=== PATIENT | female | born 1965 | race Caucasian/White ===

== ENCOUNTER → 2017-04-03 | Outpatient (CLI) | payer OTHER ==
[2017-04-03 08:53] LABS: CHOLESTEROL 268.84 mg/dL (0-200); Direct HDL 37 mg/dL (>40)
[2017-04-03 09:03] LABS: DIRECT LDL 115 mg/dL (<100); TRIGLYCERIDES 719 mg/dL (<150)
== END ==
LOC: CCC 07:09
DX: D64.9 Anemia, unspecified (principal); E55.9 Vitamin D deficiency, unspecified
CPT/HCPCS: 36415; 80061; 82306; 83540

== ENCOUNTER → 2017-09-11 | Outpatient (CLI) | payer OTHER ==
[2017-09-11 08:29] LABS: ALANINE AMINOTRANSFERASE 49 U/L (9-52); ALBUMIN 4.4 g/dL (3.5-5.0); ALKALINE PHOSPHATASE 163 U/L (38-126); ANION GAP 16 (5-19); ASPARTATE AMINO TRANSFERASE 41 U/L (14-36); BILIRUBIN,DIRECT 0.5 mg/dL (0.0-0.4); BLOOD UREA NITROGEN 10 mg/dL (7-20); CALCIUM 9.9 mg/dL (8.4-10.2); CARBON DIOXIDE 27 mmol/L (22-30); CHLORIDE 103 mmol/L (98-107); CHOLESTEROL 172.87 mg/dL (0-200); CREATININE RESULT 0.49 mg/dL (0.52-1.25); Direct HDL 47 mg/dL (>40); GLUCOSE 103 mg/dL (75-110); POTASSIUM 3.9 mmol/L (3.6-5.0); SODIUM 146.4 mmol/L (137-145); TOTAL PROTEIN 7.5 g/dL (6.3-8.2); TRIGLYCERIDES 124 mg/dL (<150)
[2017-09-11 08:39] LABS: DIRECT LDL 107 mg/dL (<100)
== END ==
LOC: CCC 07:24
DX: E78.4 Other hyperlipidemia (principal); I10 Essential (primary) hypertension; E55.9 Vitamin D deficiency, unspecified
CPT/HCPCS: 36415; 80053; 80061; 82306; 83036

== ENCOUNTER 2018-03-20 06:29 | Day surgery (SDC) | payer OTHER ==
[~2018-03-20 06:29] MED LIST: KETOROLAC TROMETHAMINE 0.45% 4 DROP/0.4 ML DROPERETTE OD PRN
[2018-03-20] MEDS: TETRACAINE HCL 0.5% OPH SOLN 2 ML OD PRN ×3 (06:57→07:42)
[2018-03-20] MEDS: TROPICAMIDE 1% OPH SOLN 3 ML OD PRN ×3 (06:58→07:21)
[2018-03-20] MEDS: CYCLOPENTOLATE 0.2%/PHENYLEPHRINE 1% OPH SOLN 2 ML OD PRN ×3 (06:58→07:21)
[2018-03-20] MEDS: BESIFLOXACIN HCL 0.6% OPH SUSP 5 ML BOTTLE OD PRN ×4 (06:59→08:14)
[2018-03-20] MEDS ORDERED: EPINEPHRINE INJ/PF 1 MG/1 ML AMPULE ONE (07:04)
[2018-03-20] MEDS ORDERED: LIDOCAINE 1% INJ-PF (10 MG/ML) 30 ML SDV ONE (07:04)
[2018-03-20] MEDS ORDERED: CHONDR SU A NA/HYALUR INTRAOC KIT (SURGICARE) ONE ×2 (07:04→07:55)
[2018-03-20] MEDS ORDERED: MIDAZOLAM 2 MG/2 ML INJ ONE (07:11)
[2018-03-20] MEDS ORDERED: TRYPAN BLUE 0.06 % OPH SOLN 0.5 ML DISP.SYRIN ONE (07:39)
[2018-03-20] MEDS ORDERED: LIDOCAINE 1%/PHENYLEPHRINE 1.5% 1 ML VIAL ONE (07:39)
[2018-03-20] MEDS ORDERED: BUPIVACAINE HCL 0.75% INJ/PF (7.5 MG/1 ML) 10 ML SDV ONE (07:42)
[2018-03-20] MEDS ORDERED: HYALURONIDASE INJ 150 UNIT/1 ML VIAL ONE (07:42)
[2018-03-20] MEDS ORDERED: LIDOCAINE 2% INJ (20 MG/ML) 20 ML MDV ONE (07:43)
[2018-03-20] MEDS ORDERED: LIDOCAINE 2% INJ-PF (20 MG/ML) 10 ML AMPUL ONE (07:49)
[2018-03-20] MEDS ORDERED: CHONDR SU A NA/HYALUR SOD INTRAOCULAR SYSTEM 1 KIT IO ONE (07:56)
--- NOTE | 2018-03-20 14:33 | SURGICARE OPERATIVE REPORT E ---
[facility] NAME: ABIMBOLA NORMAN AGE: 52Y DATE OF SURGERY: 03/20/2018 ROOM: PREOPERATIVE DIAGNOSES: 1. Age-related cataract of the right eye. 2. Pupil myosis of the right eye. POSTOPERATIVE DIAGNOSES: 1. Age-related cataract of the right eye. 2. Pupil myosis of the right eye. PROCEDURE: Complex cataract extraction with the use of a Malyugin ring and Trypan blue dye. SURGEON: GILBERT PATINO M.D. ANESTHESIA: TOPICAL. COMPLICATIONS: None. ESTIMATED BLOOD LOSS: None. DESCRIPTION OF PROCEDURE: After obtaining appropriate consent, the patient right eye was prepped and draped in sterile fashion as well as the surgeon in a sterile manner, and the cataract surgery was started. First, the paracentesis blade was used to make a small side-port incision. Viscoelastic was used to inflate the anterior chamber. Next a 2.4 mm incision was made using a 2.4 mm keratome. At this point, the pupil was less than 4.5 mm and was very miotic. In order to complete the capsulorhexis, a Malyugin ring was inserted and found to be in excellent position to help stabilize the pupil. Following this, a continuous capsulorhexis was made using a cystitome and Utrata forceps. Following this, hydrodissection was carried out to make the lens fully loose and mobile, and it was rotated 90 degrees. Following this, a divide and conquer technique was used to phacoemulsify the lens with a CDE of approximately 34.94. The remaining cortex was removed with irrigation/aspiration. Provisc was instilled into the capsular bag to inflate the bag. A SN60WF lens of 17.5 diopters was placed. The remaining viscoelastic material was removed with irrigation/aspiration. After this the Malyugin ring was removed. Following this, the incision was found to be watertight. Besivance was instilled into the eye and a protective shield was placed over the eye. The patient returned to the postoperative recovery in stable condition. This was a complex case due to the fact that the Malyugin ring was used due to poor pupillary dilation of less than or equal to 4 mm. Prior to making the capsulorrhexis due to density of the lens and it being a *------* cataract, Trypan blue dye was used to stain the anterior capsule to visualize where the capsulorrhexis. Due to the pupil being 3.5 mm, a Malyugin ring was used was dilate the pupil so that the capsulorrhexis could be performed due to severe pupil myosis. The ring was removed at the end of the case. DICTATING PHYSICIAN: GILBERT PATINO M.D. [id number] PHY#: [id number] ID: [id number] JOB#: [id number] ACCT: [id number] cc:GILBERT PATINO M.D. >
--- NOTE | 2018-03-20 14:38 | SURGICARE DISCHARGE SUMMARY E ---
[facility] Discharge Summary NAME: ABIMBOLA NORMAN AGE: 52Y ADMITTED: 03/20/2018 DISCHARGED: 03/20/2018 HISTORY: This is a 52-year-old female who underwent complex cataract extraction. DIAGNOSIS: Mature cataract of the right eye that was complex because of Malyugin ring was used for pupil myosis and Trypan blue dye was used due to it being a mature white cataract to better visualize the capsulorrhexis. HOSPITAL COURSE: The patient underwent surgery because they were unable to see objects with the right eye and only able to make out shadows. PLAN: They are to be on a regular diet. No bending at the waist. No heavy lifting. She should use her Besivance as well as Durezol at 3 p.m. and 8 p.m. and sleep with a rigid shield, and I will see her for 1 day postoperative tomorrow. DICTATING PHYSICIAN: GILBERT PATINO M.D. [id number] PHY#: [id number] ID: [id number] JOB#: [id number] ACCT: [id number] cc:GILBERT PATINO M.D. >
== END 2018-03-20 09:00 | disposition home or self-care (01) ==
LOC: SC 06:29
PROVIDERS: ATTEND Internal Medicine
DX: H25.21 Age-related cataract, morgagnian type, right eye (principal); H25.12 Age-related nuclear cataract, left eye; H40.053 Ocular hypertension, bilateral; I10 Essential (primary) hypertension; E78.00 Pure hypercholesterolemia, unspecified; F17.210 Nicotine dependence, cigarettes, uncomplicated; Z88.1 Allergy status to other antibiotic agents
CPT/HCPCS: 66982; V2632; J2250; J3490 ×3; J0171; J2370; 142; J3470

== ENCOUNTER → 2018-04-09 | Outpatient (CLI) | payer OTHER ==
[2018-04-09 08:05] LABS: ALANINE AMINOTRANSFERASE 43 U/L (9-52); ALBUMIN 4.3 g/dL (3.5-5.0); ALKALINE PHOSPHATASE 156 U/L (38-126); ANION GAP 13 (5-19); ASPARTATE AMINO TRANSFERASE 47 U/L (14-36); BILIRUBIN,DIRECT 0.5 mg/dL (0.0-0.4); BILIRUBIN,TOTAL 0.6 mg/dL (0.2-1.3); BLOOD UREA NITROGEN 10 mg/dL (7-20); CARBON DIOXIDE 29 mmol/L (22-30); CHLORIDE 105 mmol/L (98-107); CHOLESTEROL 169.78 mg/dL (0-200); GLUCOSE 95 mg/dL (75-110); POTASSIUM 3.8 mmol/L (3.6-5.0); SODIUM 146.7 mmol/L (137-145); TOTAL PROTEIN 7.6 g/dL (6.3-8.2); TRIGLYCERIDES 197 mg/dL (<150)
[2018-04-09 08:15] LABS: DIRECT LDL 104 mg/dL (<100)
[2018-04-09 08:21] LABS: VLDL CHOLESTEROL 39.4 mg/dL (10-31)
== END ==
LOC: CCC 07:19
DX: I10 Essential (primary) hypertension (principal); E78.00 Pure hypercholesterolemia, unspecified
CPT/HCPCS: 36415; 80053; 80061

== ENCOUNTER → 2018-05-25 | Outpatient (CLI) | payer SELFPAY | LOC: OD 16:14 | PROVIDERS: ATTEND Surgery | DX: Z53.9 Procedure and treatment not carried out, unspecified reason (principal) ==

== ENCOUNTER 2018-06-08 11:11 | Day surgery (SDC) | payer SELFPAY ==
[2018-06-08] MEDS ORDERED: CEFAZOLIN 1 GM/D5W RTU 1 GM/50 ML RTUPB IV ONE (11:24)
--- NOTE | 2018-06-08 12:19 | RADIOLOGY REPORT (SQ) ---
EXAM DESCRIPTION: CHEST SINGLE VIEW COMPLETED DATE/TIME: 06/08/2018 11:47 am REASON FOR STUDY: preop COMPARISON: Chest film 09/20/2016, 05/16/2012, 01/20/2012 EXAM PARAMETERS: NUMBER OF VIEWS: One view. TECHNIQUE: Single frontal radiographic view of the chest acquired. RADIATION DOSE: NA LIMITATIONS: None. FINDINGS: LUNGS AND PLEURA: No opacities, masses or pneumothorax. No pleural effusion. MEDIASTINUM AND HILAR STRUCTURES: No masses. Contour normal. HEART AND VASCULAR STRUCTURES: Heart normal in size. Normal vasculature. BONES: No acute findings. HARDWARE: None in the chest. OTHER: No other significant finding. IMPRESSION: NO ACUTE RADIOGRAPHIC FINDING IN THE CHEST. TECHNICAL DOCUMENTATION: JOB ID: [id number] [employer]- All Rights Reserved Reading location - IP/workstation name: [email or web address]
[2018-06-08 12:30] LABS: HEMOGLOBIN 13.5 g/dL (12.0-15.5); MEAN CORPUSCULAR HEMOGLOBIN 32.1 pg (27.0-33.4); MEAN CORPUSCULAR HGB CONC 34.6 g/dL (32.0-36.0); MEAN CORPUSCULAR VOLUME 93 fl (80-97); PLATELET COUNT 170 10^3/uL (150-450); RED BLOOD COUNT 4.19 10^6/uL (3.72-5.28); RED CELL DISTRIBUTION WIDTH 12.9 % (11.5-14.0); WHITE BLOOD COUNT 9.4 10^3/uL (4.0-10.5)
[2018-06-08] MEDS ORDERED: ALBUTEROL SULFATE 0.083% NEB 2.5 MG/3 ML AMPUL NEB ONE (12:50)
[2018-06-08] MEDS ORDERED: MIDAZOLAM 2 MG/2 ML INJ ONE ×2 (12:59→13:34)
[2018-06-08 13:02] LABS: BLOOD UREA NITROGEN 12 mg/dL (7-20); CALCIUM 9.5 mg/dL (8.4-10.2); GLUCOSE 94 mg/dL (75-110)
[2018-06-08 13:03] LABS: ANION GAP 13 (5-19); CARBON DIOXIDE 26 mmol/L (22-30); CHLORIDE 103 mmol/L (98-107); POTASSIUM 3.4 mmol/L (3.6-5.0); SODIUM 142.3 mmol/L (137-145)
[2018-06-08] MEDS ORDERED: PROPOFOL INJ 200 MG/20 ML VIAL IV ONE (13:34)
[2018-06-08] MEDS ORDERED: FENTANYL CITRATE INJ/PF 100 MCG/2 ML AMPUL ONE ×2 (13:34→14:42)
[2018-06-08] MEDS ORDERED: LIDOCAINE 1%/EPINEPHRINE INJ 20 ML VIAL ONE ×2 (13:44→14:16)
[2018-06-08] MEDS ORDERED: DIPHENHYDRAMINE HCL 50 MG/ML VIAL IV PRN (14:04)
[2018-06-08] MEDS ORDERED: FENTANYL CITRATE INJ/PF 100 MCG/2 ML AMPUL IV PRN ×3 (14:04)
[2018-06-08] MEDS ORDERED: ONDANSETRON HCL INJ/PF 4 MG/2 ML SDV IV PRN (14:04)
[2018-06-08] MEDS ORDERED: KETOROLAC TROMETHAMINE INJ/PF 30 MG/1 ML SDV IV PRN (14:31)
[2018-06-08] MEDS ORDERED: KETOROLAC TROMETHAMINE 10 MG TABLET PO PRN (14:31)
--- NOTE | 2018-06-08 14:41 | Discharge Summary ---
Discharge Summary (SDC) - Discharge Final Diagnosis: Triple positive positive breast cancer Date of Surgery: 06/08/18 Discharge Date: 06/08/18 Condition: Good Treatment or Instructions: Resume preoperative medications, diet, activity; follow-up with [facility] in 1-2 weeks Discharge Diet: As Tolerated Discharge Activity: Activity As Tolerated Home Care Assistance: None Needed Report the Following to Your Physician Immediately: Shortness of Breath, Increase in Pain, Fever over 101 Degrees
--- NOTE | 2018-06-08 14:44 | Operative Report ---
Operative Report DATE OF SURGERY: 06/08/18 PREOPERATIVE DIAGNOSIS: Metastatic triple positive left breast carcinoma POSTOPERATIVE DIAGNOSIS: Same OPERATION: 1. Focus ultrasound of the right internal jugular vein. 2. Ultrasound direct insertion of single lumen Arwduz-c-Bozv catheter. 3. Interpretation of intraoperative fluoroscopy. SURGEON: GAYLE HANKINS ANESTHESIA: LMAC TISSUE REMOVED OR ALTERED: None COMPLICATIONS: None ESTIMATED BLOOD LOSS: Scant INTRAOPERATIVE FINDINGS: See below PROCEDURE: Informed consent was obtained. The patient was placed in Trendelenburg the right neck and chest wall were exposed, and prepped and draped in a sterile fashion. Surgical plan and surgical timeout discussed. The right neck was anesthetized with 1% lidocaine without epinephrine. Using the variable frequency linear transducer, real time, the microneedle wire threaded into the right internal jugular vein without difficulty. Fluoroscopy confirmed appropriate positioning of the wire A suitable site for placement of the port was chosen in the right subclavian position. Skin was anesthetized with 1% plain lidocaine, a 3 cm transverse incision was made with a 15 blade. A port pocket was developed large enough to accommodate a single-chamber port. The catheter was then trimmed the appropriate length and tunnel between the 2 incisions. The microneedle was switched over to conventional 0.030 guidewire using the introducer sheath all under fluoroscopic guidance. We now threaded the 9 Portuguese dilator and reduce her sheath over the conventional guidewire and the dilator and wire removed, catheter threaded into the strip away sheath and strip away sheath removed. Under fluoroscopic guidance there was no evidence of kinking of the catheter. Tip of the catheter was in the right atrium. There was excellent aspiration and flushed through the chamber. Hemostasis was excellent. No evidence of ectopy. Wounds closed with 3-0 Vicryl benzoin and Steri-Strips. The patient tolerated the procedure well. There were no complications.
--- NOTE | 2018-06-08 15:42 | RADIOLOGY REPORT (SQ) ---
EXAM DESCRIPTION: FLUORO/CV PLACEMENT COMPLETED DATE/TIME: 06/08/2018 2:57 pm REASON FOR STUDY: PORTACATH INSERTION C50.912 MALIGNANT NEOPLASM OF UNSPECIFIED SITE OF LEFT FEMAL FLUOROSCOPY TIME: 0.1 minutes 2 digital C-arm images saved to PACS. TECHNIQUE: Intra-operative images acquired during surgical procedure to evaluate progress. NUMBER OF IMAGES: 2 digital C-arm images LIMITATIONS: None. FINDINGS: Intra procedural imaging and fluoro during placement of a right-sided permanent central li ne with the tip in the superior vena cava. Please see the operative report for further details IMPRESSION: Intra procedural imaging and fluoro COMMENT: Quality ID 145: Final reports for procedures using fluoroscopy that document radiation exp osure indices, or exposure time and number of fluorographic images (if radiation exposure indices are not available) Please consult full operative report of the attending physician for description of the procedure. TECHNICAL DOCUMENTATION: JOB ID: [id number] [employer]- All Rights Reserved COMPARISON: None. Chest films 06/08/2018, 09/20/2016, 05/16/2012 Reading location - IP/workstation name: [email or web address]
[2018-06-08 16:44] VITALS: BP 130/75
--- NOTE | 2018-06-08 18:40 | EKG REPORT ---
SEVERITY:- NORMAL ECG - SINUS RHYTHM : Confirmed by: Ravi Bliss MD 08-Jun-2018 18:39:45
== END 2018-06-08 16:40 | disposition home or self-care (01) ==
LOC: OROUT 11:11
PROVIDERS: ATTEND Surgery
DX: C50.912 Malignant neoplasm of unspecified site of left female breast (principal); I10 Essential (primary) hypertension; F17.210 Nicotine dependence, cigarettes, uncomplicated; Z79.899 Other long term (current) drug therapy; Z80.49 Family history of malignant neoplasm of other genital organs
CPT/HCPCS: 36415; 85027; 80048; 71045; 77001; 93005; 93010; 36561; C1752; C1788; J2250; J0690; J3010; J3490; J1885; J2704; J1642; 532

== ENCOUNTER → 2018-06-12 | Outpatient (CLI) | payer SELFPAY ==
--- NOTE | 2018-06-12 12:56 | RADIOLOGY REPORT (SQ) ---
EXAM DESCRIPTION: CT CHEST WITH; CT ABD/PELVIS WITH IV ONLY COMPLETED DATE/TIME: 06/12/2018 11:49 am REASON FOR STUDY: BREAST CA C50.312 MALIG NEOPLASM OF LOWER-INNER QUADRANT OF LEFT FEMAL COMPARISON: CT ABDOMEN PELVIS 06/12/2007 CONTRAST TYPE AND DOSE: contrast/concentration: Isovue 350.00 mg/ml; Total Contrast Delivered: 97.0 ml; Total Saline Delivered: 72.0 ml RENAL FUNCTION: CREATININE 0.4 TECHNIQUE: CT scan of the chest performed using helical scanning technique with dynamic intravenous contrast injection. Images reviewed with lung, soft tissue and bone windows. Reconstructed coronal a nd sagittal MPR images reviewed. All images stored on PACS. CT scan of the abdomen and pelvis performed with intravenous and without oral contrastusing helical s francis technique with dynamic intravenous contrast injection. Images reviewed with lung, soft tissu e and bone windows. Reconstructed coronal and sagittal MPR images reviewed. Delayed images for eval uation of the urinary system also acquired and evaluated. All images stored on PACS. All CT scanners at this facility use dose modulation, iterative reconstruction, and/or weight based d osing when appropriate to reduce radiation dose to as low as reasonably achievable (ALARA). [facility]: Dose Right [facility]: CareDose [facility]: Dose Right [facility]: Teradose 4D [facility]: [employer] RADIATION DOSE: CT Rad equipment meets quality standard of care and radiation dose reduction techniq ues were employed. CTDIvol: 14.5 - 18.5 mGy. DLP: 2044 mGy-cm. . LIMITATIONS: None. FINDINGS: CHEST: LUNGS AND PLEURA: No opacities, nodules, masses. No pneumothorax. No effusions. HILAR AND MEDIASTINAL STRUCTURES: No identified masses or abnormal nodes. HEART AND VASCULAR STRUCTURES: No aneurysm or dissection. No central pulmonary emboli. No pericardi al effusion. HARDWARE: Right-sided permanent central line tip superior vena cava. Left breast biopsy clip axial i mage 28. THYROID AND OTHER SOFT TISSUES: No masses. No adenopathy. BONES: No significant finding. OTHER: No other significant finding. ABDOMEN AND PELVIS: LIVER: Diffuse hepatomegaly. Nodular contour without discrete masses. No biliary ductal dilatation. No abnormal enhancement SPLEEN: 15 cm in length. No masses or abnormal enhancement PANCREAS: No masses. No significant calcifications. No adjacent inflammation or peripancreatic fluid collections. Pancreatic duct not dilated. GALLBLADDER: No identified stones by CT criteria. No inflammatory changes to suggest cholecystitis. ADRENAL GLANDS: No significant masses or asymmetry. RIGHT KIDNEY AND URETER: No solid masses. No significant calcification. No hydronephrosis or hydroure ter. LEFT KIDNEY AND URETER: No solid masses. No significant calcification. No hydronephrosis or hydrouret er. AORTA AND VESSELS: No aneurysm. No dissection. Atherosclerotic calcification of the abdominal were a brannon and major branches. About 50% narrowing SMA and bilateral proximal renal arteries. RETROPERITONEUM: No retroperitoneal adenopathy, hemorrhage or masses. BOWEL AND PERITONEAL CAVITY: No masses or inflammatory changes. No free fluid or peritoneal masses. APPENDIX: Not identified ABDOMINAL WALL: No masses. No hernias. PELVIS: No mass or free fluid. Normal bladder. Post hysterectomy. Normal-sized ovaries. BONES: No significant or acute findings. OTHER: No other significant finding. IMPRESSION: No CT evidence of metastatic breast cancer to the chest abdomen or pelvis. Post hysterectomy and appendectomy. Hepatosplenomegaly TECHNICAL DOCUMENTATION: JOB ID: [id number] Quality ID # [id number]: Final reports with documentation of one or more dose reduction techniques (e.g., Au tomated exposure control, adjustment of the mA and/or kV according to patient size, use of iterative reconstruction technique) 2010 [employer]- All Rights Reserved Reading location - IP/workstation name: [email or web address]
--- NOTE | 2018-06-12 15:04 | RADIOLOGY REPORT (SQ) ---
EXAM DESCRIPTION: NM WHOLE BODY BONE SCAN COMPLETED DATE/TIME: 06/12/2018 2:41 pm REASON FOR STUDY: BREAST CA C50.312 MALIG NEOPLASM OF LOWER-INNER QUADRANT OF LEFT FEMAL COMPARISON: CT chest 06/12/2018 RADIONUCLIDE AND DOSE: 21.2 millicuries Tc99m HDP. The route of agent administration: Intravenous. ADDITIONAL DRUGS AND DOSES: None. TECHNIQUE: Routine delayed images at 3 hours post radionuclide injection acquired of the bony skelet on including anterior and posterior whole-body projections and additional focused images as needed. LIMITATIONS: None. FINDINGS: There is increased uptake over the right humeral head. This correlates with subcortical c yst with surrounding bony sclerosis on CT chest 06/12/2018, likely related to osteoarthritis. Remainder of the skeletal uptake is otherwise unremarkable aside from minimal increased uptake at the knees in characteristic location for osteoarthritis. No skeletal uptake worrisome for metastatic disease. Normal excretion of HDP by the kidneys IMPRESSION: No bone scan evidence of metastatic disease. Increased uptake right shoulder likely due to osteoarthritis. Consider MRI right shoulder for followup. COMMENT: Quality measure 147: Current bone scan is compared with any available plain radiographs, p rior bone scans, and CT/MRI. TECHNICAL DOCUMENTATION: JOB ID: [id number] [employer]- All Rights Reserved Reading location - IP/workstation name: [email or web address]
== END ==
LOC: RAD 10:53
PROVIDERS: ATTEND Internal Medicine
DX: C50.312 Malignant neoplasm of lower-inner quadrant of left female breast (principal)
CPT/HCPCS: 78306; 71260; 74177; A9561; Q9969

== ENCOUNTER 2018-06-13 10:05 | Outpatient (CLI) | payer SELFPAY ==
[~2018-06-13 10:05] MED LIST changes: +CYCLOPHOSPHAMIDE IV PRN; +DEXAMETHASONE SOD PHOSPHATE 10 MG in NORMAL SALINE 50 ML IV PRN; +DISPOSABLE IV PRN; +DOXORUBICIN HCL IV PRN; +FOSAPREPITANT DIMEGLUMINE 150 MG in NORMAL SALINE 150 ML IV PRN; -KETOROLAC TROMETHAMINE 0.45% 4 DROP/0.4 ML DROPERETTE OD PRN; +NORMAL SALINE 500 ML IV PRN; +NORMAL SALINE IV PRN; +PALONOSETRON 0.25 MG/5 ML SDV IV PRN
[2018-06-13 11:12] VITALS: BP 147/83
== END 2018-06-13 14:00 | disposition home or self-care (01) ==
LOC: II 10:05 → 5TH 10:08 → II 14:00
PROVIDERS: ATTEND Internal Medicine
PROC: 3E04305 Introduction of Other Antineoplastic into Central Vein, Percutaneous Approach (ICD-10-PCS; principal; 2018-06-13)
PROC: 3E0433Z Introduction of Anti-inflammatory into Central Vein, Percutaneous Approach (ICD-10-PCS; 2018-06-13)
PROC: 3E043GC Introduction of Other Therapeutic Substance into Central Vein, Percutaneous Approach (ICD-10-PCS; 2018-06-13)
DX: Z51.11 Encounter for antineoplastic chemotherapy (principal); C50.312 Malignant neoplasm of lower-inner quadrant of left female breast
CPT/HCPCS: 96409; 96413; 96367; 96375; 96360; J9070; J9000; J7050; J3490; J1100; J1453; J2469; 96417

== ENCOUNTER 2018-06-14 15:09 | Outpatient (CLI) | payer SELFPAY ==
[~2018-06-14 15:09] MED LIST changes: -CYCLOPHOSPHAMIDE IV PRN; -DEXAMETHASONE SOD PHOSPHATE 10 MG in NORMAL SALINE 50 ML IV PRN; -DISPOSABLE IV PRN; -DOXORUBICIN HCL IV PRN; -FOSAPREPITANT DIMEGLUMINE 150 MG in NORMAL SALINE 150 ML IV PRN; -NORMAL SALINE 500 ML IV PRN; -NORMAL SALINE IV PRN; -PALONOSETRON 0.25 MG/5 ML SDV IV PRN; +PEGFILGRASTIM INJ 6 MG/0.6 ML DISP.SYRIN SUBCUT PRN
[2018-06-14 15:24] VITALS: BP 117/62
== END 2018-06-14 16:00 | disposition home or self-care (01) ==
LOC: II 15:09 → 5TH 15:10 → II 16:00
PROVIDERS: ATTEND Internal Medicine
PROC: 3E013GC Introduction of Other Therapeutic Substance into Subcutaneous Tissue, Percutaneous Approach (ICD-10-PCS; principal; 2018-06-14)
DX: Z76.89 Persons encountering health services in other specified circumstances (principal); C50.312 Malignant neoplasm of lower-inner quadrant of left female breast; D70.2 Other drug-induced agranulocytosis
CPT/HCPCS: 96372; J2505

== ENCOUNTER → 2018-06-14 | Outpatient (CLI) | payer SELFPAY ==
--- NOTE | 2018-06-14 14:01 | RADIOLOGY REPORT (SQ) ---
EXAM DESCRIPTION: NM MUGA REST COMPLETED DATE/TIME: 06/14/2018 1:47 pm REASON FOR STUDY: BREAST CANCER C50.312 MALIG NEOPLASM OF LOWER-INNER QUADRANT OF LEFT FEMAL COMPARISON: None. RADIONUCLIDE AND DOSE: 27.4 mCi technetium 99m labeled red blood cells The route of agent administration: Intravenous TECHNIQUE: Following administration of the radionuclide, gated images of the heart are obtained in t hree projections. Left ventricular functional analysis performed. LIMITATIONS: None. FINDINGS: LEFT VENTRICULAR FUNCTION: EJECTION FRACTION: 72%. END-DIASTOLIC VOLUME: 96 mL. END-SYSTOLIC VOLUME: 53 mL. WALL MOTION: No focal wall motion abnormalities. OTHER: No other significant finding. IMPRESSION: NORMAL CARDIAC MUGA STUDY. NORMAL LEFT VENTRICULAR FUNCTION WITH VALUES ABOVE. TECHNICAL DOCUMENTATION: JOB ID: [id number] [employer]- All Rights Reserved Reading location - IP/workstation name: [email or web address]
== END ==
LOC: RAD 10:50
PROVIDERS: ATTEND Internal Medicine
DX: Z08 Encounter for follow-up examination after completed treatment for malignant neoplasm (principal); C50.312 Malignant neoplasm of lower-inner quadrant of left female breast
CPT/HCPCS: 78472; A9560; Q9969

== ENCOUNTER 2018-06-27 09:16 | Outpatient (CLI) | payer MEDICAID ==
[~2018-06-27 09:16] MED LIST changes: +CYCLOPHOSPHAMIDE IV PRN; +DEXAMETHASONE SOD PHOSPHATE 10 MG in NORMAL SALINE 50 ML IV PRN; +DISPOSABLE IV PRN; +DOXORUBICIN HCL IV PRN; +FOSAPREPITANT DIMEGLUMINE 150 MG in NORMAL SALINE 150 ML IV PRN; +NORMAL SALINE 500 ML IV PRN; +NORMAL SALINE IV PRN; +PALONOSETRON 0.25 MG/5 ML SDV IV PRN; -PEGFILGRASTIM INJ 6 MG/0.6 ML DISP.SYRIN SUBCUT PRN
[2018-06-27 09:51] VITALS: BP 107/69
== END 2018-06-27 12:36 | disposition home or self-care (01) ==
LOC: II 09:16 → 4W 09:19 → II 12:36
PROVIDERS: ATTEND Internal Medicine
PROC: 3E04305 Introduction of Other Antineoplastic into Central Vein, Percutaneous Approach (ICD-10-PCS; principal; 2018-06-27)
PROC: 3E0433Z Introduction of Anti-inflammatory into Central Vein, Percutaneous Approach (ICD-10-PCS; 2018-06-27)
PROC: 3E043GC Introduction of Other Therapeutic Substance into Central Vein, Percutaneous Approach (ICD-10-PCS; 2018-06-27)
DX: Z51.11 Encounter for antineoplastic chemotherapy (principal); C50.312 Malignant neoplasm of lower-inner quadrant of left female breast
CPT/HCPCS: 96409; 96413; 96367; 96375; J9070; J9000; J7050; J7040; J3490; J1100; J1453; J2469; 96411

== ENCOUNTER 2018-10-31 08:32 | Day surgery (SDC) | payer MEDICAID ==
[2018-10-29 08:48] LABS: HEMATOCRIT 39.5 % (36.0-47.0); HEMOGLOBIN 13.4 g/dL (12.0-15.5); MEAN CORPUSCULAR HEMOGLOBIN 29.5 pg (27.0-33.4); MEAN CORPUSCULAR HGB CONC 33.9 g/dL (32.0-36.0); MEAN CORPUSCULAR VOLUME 87 fl (80-97); PLATELET COUNT 163 10^3/uL (150-450); RED BLOOD COUNT 4.54 10^6/uL (3.72-5.28); RED CELL DISTRIBUTION WIDTH 16.2 % (11.5-14.0); WHITE BLOOD COUNT 6.9 10^3/uL (4.0-10.5)
[2018-10-29 09:19] LABS: ANION GAP 5 (5-19); BLOOD UREA NITROGEN 14 mg/dL (7-20); CALCIUM 10.2 mg/dL (8.4-10.2); CARBON DIOXIDE 32 mmol/L (22-30); CHLORIDE 103 mmol/L (98-107); GLUCOSE 88 mg/dL (75-110); POTASSIUM 4.5 mmol/L (3.6-5.0); SODIUM 140.3 mmol/L (137-145)
[~2018-10-31 08:32] MED LIST changes: +CEFAZOLIN 1 GM/D5W RTU 1 GM/50 ML RTUPB IV ONE; +CEFAZOLIN 1 GM/D5W RTU 1 GM/50 ML RTUPB IV PRN; -CYCLOPHOSPHAMIDE IV PRN; -DEXAMETHASONE SOD PHOSPHATE 10 MG in NORMAL SALINE 50 ML IV PRN; -DISPOSABLE IV PRN; -DOXORUBICIN HCL IV PRN; -FOSAPREPITANT DIMEGLUMINE 150 MG in NORMAL SALINE 150 ML IV PRN; +LACTATED RINGERS 1000 ML IV PRN; +LIDOCAINE 0.5% INJ-PF (5 MG/ML) 50 ML SDV SUBCUT PRN; -NORMAL SALINE 500 ML IV PRN; -NORMAL SALINE IV PRN; -PALONOSETRON 0.25 MG/5 ML SDV IV PRN
[2018-10-31] MEDS ORDERED: MIDAZOLAM 2 MG/2 ML INJ ONE (08:59)
[2018-10-31] MEDS ORDERED: PROPOFOL INJ 200 MG/20 ML VIAL IV ONE (08:59)
[2018-10-31] MEDS ORDERED: HYDROMORPHONE HCL INJ/PF 2 MG/ML AMPULE ONE (08:59)
[2018-10-31] MEDS ORDERED: ACETAMINOPHEN 1,000 MG/100 ML RTUPB IV ONE (08:59)
[2018-10-31] MEDS ORDERED: FENTANYL CITRATE INJ/PF 100 MCG/2 ML AMPUL ONE ×2 (08:59→14:22)
[2018-10-31] MEDS ORDERED: LIDOCAINE 1%/EPINEPHRINE INJ 20 ML VIAL ONE (09:58)
[2018-10-31] MEDS ORDERED: MICROFIBRILLAR COLLAGEN 1 GM PACK ONE (09:58)
[2018-10-31] MEDS ORDERED: EPHEDRINE SULFATE INJ 50 MG/1 ML AMPULE ONE (11:03)
[2018-10-31] MEDS ORDERED: MORPHINE SULFATE 10 MG/ML INJ IV PRN (11:07)
[2018-10-31] MEDS ORDERED: FENTANYL CITRATE INJ/PF 100 MCG/2 ML AMPUL IV PRN ×3 (11:07)
[2018-10-31] MEDS ORDERED: MEPERIDINE HCL/PF INJ 25 MG/1 ML DISP.SYRIN IV PRN (11:07)
[2018-10-31] MEDS ORDERED: DIPHENHYDRAMINE HCL 50 MG/ML VIAL IV PRN (11:07)
[2018-10-31] MEDS ORDERED: PROMETHAZINE HCL INJ 25 MG/1 ML VIAL IV PRN (11:07)
[2018-10-31] MEDS ORDERED: DEXAMETHASONE SOD PHOSPHATE INJ 4 MG/1 ML VIAL ONE (12:46)
[2018-10-31] MEDS ORDERED: GLYCOPYRROLATE 1 MG/5 ML SYRINGE ONE (12:46)
[2018-10-31] MEDS ORDERED: ONDANSETRON HCL INJ/PF 4 MG/2 ML SDV ONE (12:46)
[2018-10-31] MEDS ORDERED: KETOROLAC TROMETHAMINE 60 MG/2 ML SDV ONE (12:46)
[2018-10-31] MEDS ORDERED: SUCCINYLCHOLINE CHLORIDE INJ 200 MG/10 ML VIAL ONE (12:46)
--- NOTE | 2018-10-31 13:49 | Operative Report ---
Operative Report DATE OF SURGERY: 10/31/18 PREOPERATIVE DIAGNOSIS: 1. 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 2. Status post neoadjuvant chemotherapy. 3. BRCA1 positive mutation POSTOPERATIVE DIAGNOSIS: Same OPERATION: 1. Left modified radical mastectomy with 2 drains left chest wall. 2. Right simple mastectomy with 1 drain placement right chest wall SURGEON: GAYLE LISA 1ST [employer] SUPERVISOR: VALERIA HARRISON ANESTHESIA: GA TISSUE REMOVED OR ALTERED: Left breast with axillary contents; right breast COMPLICATIONS: None ESTIMATED BLOOD LOSS: scant INTRAOPERATIVE FINDINGS: See below PROCEDURE: The patient was seen in the preop holding area where a left modified radical mastectomy, and the right breast marked for simple mastectomy. She is taken to the main operating room where general anesthesia was induced. Both arms were abducted, and both breast, chest wall, and axilla prepped and draped in sterile fashion. Prior to prepping, however, Dr. Lisa marked the breast for planned bilateral mastectomy. Surgical plan and surgical timeout were conducted. Of note a Moffett catheter was inserted for The left breast was approached first. A #10 blade was used to cut the ellipse of skin previously marked. Superior and inferior skin flaps were raised, and the left breast was taken off of the chest wall including the pectoralis major fascia and a small portion of the serratus anterior fascia. Bookwalter retractor system was established, and dissection of the left axilla was begun. Skin flaps were elevated superiorly and laterally to expose left axilla. Because of the previous history of neoadjuvant chemotherapy, there was a moderate amount of scar tissue particularly laterally and superiorly. Eventually we took the level of dissection down to the axillary sheath, and laterally to the axillary fold and down to the latissimus dorsi muscle. Medially we took the breast off of the chest wall, specifically the serratus anterior muscle. The long thoracic nerve was visualized, pinched, and the serratus anterior muscle flinched. The axillary contents were then taken down including level 1 and level 2 lymph nodes, with the pectoralis minor elevated off of the chest wall for a thorough exposure to level 2 compartment. The intercostal brachial nerve was preserved throughout the dissection. 1 of the vascular pedicles to the pectoralis minor was sacrificed during the dissection. Fatty tissue coming off of the axillary vein was removed in its entirety. Small branch veins off of the axillary vein were divided as encountered. The thoracodorsal complex was identified, and preserved throughout the dissection. Again there was a mild to moderate amount of fibrotic scar tissue from the neoadjuvant chemotherapy effect, but this did not prevent a thorough clearing of the axilla posteriorly. Eventually we had the breast and tail of Burnham and axillary contents mobilized, brought out of the axilla, and labeled with a long suture in the lateral position short suture in the superior position. Some additional fragments of fatty tissue removed from the chest wall apically. We returned to the axilla check for bleeding there was none. Both thoracodorsal nerve and long thoracic nerves were pinched and respective muscles twitched. 2 drains were placed in the left inferior chin flap, and placed medially and laterally trimmed to the appropriate length and secured to the skin with 2-0 Prolene suture. The left arm was brought to the patient's side, and the skin closed with 2-0 Vicryl suture Dermabond glue. The right breast was then removed in a similar fashion with the ellipse of skin divided with #10 blade, superior and inferior skin flaps raised, and the breast taken off from the infraclavicular area superiorly, the parasternal tissue medially, the serratus anterior inferiorly, and the tail of Burnham laterally and superio-laterally. We were careful to avoid getting into the right subclavian Kcnqsr-m-Jugc pocket. A large Surinder drain was placed to the right inferior lateral skin flap, secured to the skin with 2-0 Prolene suture, and the mastectomy incision closed with running 2-0 Vicryl suture. Dermabond glue applied. Patient tolerated the procedure well, extubated, taken recovery room stable condition. The physician bacteriology research assistant, Ms. Mayes, provided assistance during this case by: Assisting retraction of tissue, instillation of local anesthesia and closure of skin incisions.
[2018-10-31] MEDS ORDERED: DEXTROSE 5%-LACTATED RINGERS 1,000 ML IV PRN (14:13)
[2018-10-31] MEDS ORDERED: ALBUTEROL SULFATE 0.083% NEB 2.5 MG/3 ML AMPUL NEB PRN (14:13)
[2018-10-31] MEDS ORDERED: KETOROLAC TROMETHAMINE 10 MG TABLET PO PRN (14:21)
[2018-10-31] MEDS: MORPHINE SULFATE 10 MG/ML INJ IV PRN ×2 (15:42→19:59)
[2018-10-31] MEDS: ACETAMINOPHEN INJ/PF 1000 MG/100 ML SDV IV SCH ×2 (18:24→23:58)
[2018-11-01] MEDS: MORPHINE SULFATE 10 MG/ML INJ IV PRN ×3 (01:00→15:18)
[2018-11-01] MEDS: ACETAMINOPHEN INJ/PF 1000 MG/100 ML SDV IV SCH ×3 (06:21→17:22)
[2018-11-01 16:20] VITALS: BP 87/49
== END 2018-11-01 19:50 | disposition home or self-care (01) ==
LOC: OROUT 08:32 → EDSTATUS 10:30 → 2N 15:27 → OROUT 11-01 19:50
PROVIDERS: ATTEND Surgery
DX: C50.212 Malignant neoplasm of upper-inner quadrant of left female breast (principal); Z15.01 Genetic susceptibility to malignant neoplasm of breast; F17.210 Nicotine dependence, cigarettes, uncomplicated; I10 Essential (primary) hypertension; Z80.49 Family history of malignant neoplasm of other genital organs; Z79.899 Other long term (current) drug therapy
CPT/HCPCS: 36415; 85027; 80048; 88342 ×2; 88307 ×2; 88309 ×2; 94799; 19307; 19303; J2250; J0690; J1100; J3490 ×2; J1885; J3010; J2270 ×2; J1170; J0330; J2405; J2704; J0131 ×2; 404

== ENCOUNTER → 2018-11-01 | Outpatient (CLI) | payer MEDICAID ==
--- NOTE | 2018-11-01 16:50 | WOMENS IMAGING REPORT ---
EXAM DESCRIPTION: BREAST SPECIMEN COMPLETED DATE/TIME: 11/01/2018 11:15 am REASON FOR STUDY: SPECIMEN R92.0 MAMMOGRAPHIC MICROCALCIFICATION FOUND ON DX IMAGING OF COMPARISON: None. TECHNIQUE: Specimen radiograph from breast procedure performed in the operating room. LIMITATIONS: None. FINDINGS: Specimen radiograph from breast procedure performed in the operating room. Please see procedure note for details and final pathology. IMPRESSION: Specimen radiograph. TECHNICAL DOCUMENTATION: JOB ID: [id number] Reading location - IP/workstation name: [email or web address]
== END ==
LOC: WI 10:55
PROVIDERS: ATTEND Surgery
DX: R92.0 Mammographic microcalcification found on diagnostic imaging of breast (principal)
CPT/HCPCS: 76098

== ENCOUNTER 2019-01-07 05:43 | Day surgery (SDC) | payer MEDICAID ==
[2019-01-02 12:34] LABS: HEMATOCRIT 41.3 % (36.0-47.0); HEMOGLOBIN 14.3 g/dL (12.0-15.5); MEAN CORPUSCULAR HEMOGLOBIN 29.8 pg (27.0-33.4); MEAN CORPUSCULAR HGB CONC 34.5 g/dL (32.0-36.0); MEAN CORPUSCULAR VOLUME 86 fl (80-97); PLATELET COUNT 149 10^3/uL (150-450); RED BLOOD COUNT 4.78 10^6/uL (3.72-5.28); RED CELL DISTRIBUTION WIDTH 15.3 % (11.5-14.0); WHITE BLOOD COUNT 5.9 10^3/uL (4.0-10.5)
[2019-01-02 12:36] LABS: APPEARANCE,URINE CLOUDY; BILIRUBIN,URINE NEGATIVE (NEGATIVE); COLOR,URINE YELLOW; GLUCOSE, URINE NEGATIVE (NEGATIVE); KETONES,URINE NEGATIVE (NEGATIVE); LEUKOCYTE ESTERASE,URINE SMALL (NEGATIVE); NITRITE,URINE NEGATIVE (NEGATIVE); PROTEIN,URINE NEGATIVE (NEGATIVE); URINE SPECIFIC GRAVITY 1.015; UROBILINOGEN,URINE NEGATIVE mg/dL (<2.0)
[~2019-01-07 05:43] MED LIST changes: -CEFAZOLIN 1 GM/D5W RTU 1 GM/50 ML RTUPB IV ONE; -CEFAZOLIN 1 GM/D5W RTU 1 GM/50 ML RTUPB IV PRN
[2019-01-07] MEDS ORDERED: LIDOCAINE 2% INJ (20 MG/ML) 20 ML MDV ONE (06:54)
[2019-01-07] MEDS ORDERED: MEPERIDINE HCL/PF INJ 25 MG/1 ML DISP.SYRIN IV PRN (08:08)
[2019-01-07] MEDS ORDERED: ONDANSETRON HCL INJ/PF 4 MG/2 ML SDV IV PRN (08:08)
[2019-01-07] MEDS ORDERED: FENTANYL CITRATE INJ/PF 100 MCG/2 ML AMPUL IV PRN ×3 (08:08)
[2019-01-07] MEDS ORDERED: DIPHENHYDRAMINE HCL 50 MG/ML VIAL IV PRN (08:08)
[2019-01-07] MEDS ORDERED: MORPHINE SULFATE 10 MG/ML INJ IV PRN (08:08)
[2019-01-07] MEDS ORDERED: PROMETHAZINE HCL INJ 25 MG/1 ML VIAL IV PRN ×2 (08:08→10:38)
[2019-01-07] MEDS ORDERED: EPHEDRINE SULFATE INJ 50 MG/1 ML AMPULE ONE (08:51)
[2019-01-07] MEDS ORDERED: CEFAZOLIN INJ 1 GM VIAL ONE (08:51)
[2019-01-07] MEDS ORDERED: PROMETHAZINE HCL INJ 25 MG/1 ML VIAL ONE (09:06)
[2019-01-07] MEDS ORDERED: ACETAMINOPHEN 1,000 MG/100 ML RTUPB IV PRN (10:38)
[2019-01-07] MEDS ORDERED: OXYCODONE-ACETAMINOPHEN 5-325 MG TABLET PO PRN ×2 (10:38)
[2019-01-07] MEDS ORDERED: RINGERS SOLUTION,LACTATED 1,000 ML IV PRN (10:38)
[2019-01-07] MEDS ORDERED: ACETAMINOPHEN 325 MG TABLET PO PRN (10:38)
[2019-01-07] MEDS ORDERED: HYDROMORPHONE HCL INJ/PF 2 MG/ML AMPULE IV PRN (10:38)
[2019-01-07] MEDS ORDERED: SIMETHICONE 80 MG TAB.CHEW PO PRN (10:38)
[2019-01-07] MEDS ORDERED: ACETAMINOPHEN 1,000 MG/100 ML RTUPB IV ONE (10:51)
[2019-01-07] MEDS ORDERED: HYDROMORPHONE HCL INJ/PF 2 MG/ML AMPULE ONE (10:51)
[2019-01-07] MEDS ORDERED: MIDAZOLAM 2 MG/2 ML INJ ONE (10:51)
[2019-01-07] MEDS ORDERED: PROPOFOL INJ 200 MG/20 ML VIAL IV ONE (10:51)
--- NOTE | 2019-01-07 10:52 | Operative Report ---
Operative Report DATE OF SURGERY: 01/07/19 PREOPERATIVE DIAGNOSIS: She has a breast cancer and now wishes to have her ovar ies and tubes removed. POSTOPERATIVE DIAGNOSIS: Same plus pelvic adhesions OPERATION: Laparoscopy which was converted to an open laparotomy with bilateral salpingo-oophorectomy and lysis of adhesions SURGEON: NATI MONTANA SENIOR ENGINEERING MANAGER: CLINTON RIZZO ANESTHESIA: GA TISSUE REMOVED OR ALTERED: Ovaries and fallopian tubes ESTIMATED BLOOD LOSS: 125 cc INTRAOPERATIVE FINDINGS: Dense omental adhesions and ovaries at the end of the pelvis PROCEDURE: Patient was taken the OR and placed in supine position. General anesthesia was induced. She is placed in dorsolithotomy position using Jairo stirrups. Her abdomen perineum and vagina were prepared and draped in sterile fashion her bladder was drained with a Moffett catheter. Incision was made at the umbilicus and the natural umbilical defect was identified and dilated with Di clamp allowing a blunt port to be placed. Laparoscopy confirmed appropriate placement. Patient was noted to have very dense omental adhesions anteriorly mostly on the left abdomen and pelvis. A suprapubic incision was made and the laparoscopic port was placed a right lateral incision was made and a laparoscopic port was placed. At this point I could see the right ovary down in the pelvis but it was densely adherent to the lateral sidewall. I could not see the left ovary and tube. At this point I asked the general surgeon to give me an opinion as to the likelihood of completing the surgery laparoscopically. He felt that it would be very challenging and I agreed and for this reason I abandoned the laparoscopy. The ports were removed the gas was allowed to escape. The fascia at the umbilicus was closed with 2-0 Vicryl and skin closed with a 4-0 Vicryl on the port sites. She was placed back in a supine position. A low transverse incision was then made over her old scar which was carried down to the fascia. The fascia was incised in the midline and the incision extended bilaterally using curved Segovia scissors. The fascia was off the rectus muscles using sharp and blunt dissection. The rectus muscles were midline peritoneum was entered without incident. An Vern retractor was placed and the bowel was packed off using a moist lap sponge. This gave view of her right tube and ovary. The round ligament was divided with the LigaSure device. The retroperitoneal space was entered and the ureter was identified. The ovary was then taken off the sidewall using sharp dissection. The infundibulopelvic pedicle was then cauterized with the LigaSure device and then cut and the ovary and tube were passed off the field. The ureter could see be seen peristalsing well away from the surgical site. Hemostasis was good. Next I turned my attention to the left tube and ovary. Exposure was more challenging on this side and the ovary was directly adherent to the colon. At this point I asked Dr. Rizzo from general surgery to help with the case and he agreed. We took the ovary off the sidewall using dissection with right angle clamps. The ovary was also from the colon using dissection with the right angle clamps. After it was completely freed up and off the sidewall and this colon the infundibulopelvic pedicle was clamped with a right angle clamp and then ligated with the LigaSure and cut. A free tie of 0 Vicryl was placed across the pedicles well. Hemostasis was quite good. Our dissection was well away from the ureter. At this point the retractor and lap sponges were removed. Counts were correct. The rectus muscles were brought together in the midline with s everal interrupted sutures of 3-0 chromic. The fascia was closed with a running 0 Vicryl in 2 segments. The wound was irrigated and the subcu layer was closed with a 2 oh plain gut stitch and skin closed with a running subcuticular 4-0 undyed Vicryl stitch. The wound was dressed. Patient was extubated in the OR and taken recovery room in stable condition. The urine was clear at the end of the case and the Moffett was removed.
[2019-01-07] MEDS: FENTANYL CITRATE INJ/PF 100 MCG/2 ML AMPUL ONE ×2 (10:54→10:59)
[2019-01-07] MEDS: HYDROMORPHONE HCL INJ/PF 2 MG/ML AMPULE ONE ×2 (11:05→11:15)
[2019-01-07] MEDS ORDERED: KETOROLAC TROMETHAMINE INJ/PF 30 MG/1 ML SDV IV SCH (14:00)
[2019-01-07] MEDS ORDERED: KETOROLAC TROMETHAMINE 60 MG/2 ML SDV ONE (15:31)
[2019-01-07] MEDS ORDERED: ONDANSETRON HCL INJ/PF 4 MG/2 ML SDV ONE (15:31)
[2019-01-07] MEDS ORDERED: GLYCOPYRROLATE 1 MG/5 ML SYRINGE ONE (15:31)
[2019-01-07] MEDS ORDERED: NEOSTIGMINE METHYLSULFATE 10 MG/10 ML VIAL ONE (15:31)
[2019-01-07] MEDS ORDERED: SUCCINYLCHOLINE CHLORIDE INJ 200 MG/10 ML VIAL ONE (15:31)
[2019-01-07] MEDS ORDERED: ROCURONIUM BROMIDE INJ 50 MG/5 ML VIAL IV ONE (15:31)
[2019-01-07] MEDS ORDERED: PHENYLEPHRINE HCL INJ/PF 10 MG/1 ML SDV ONE (15:31)
[2019-01-07] MEDS ORDERED: DEXAMETHASONE SOD PHOSPHATE INJ 4 MG/1 ML VIAL ONE (15:31)
--- NOTE | 2019-01-07 16:48 | Discharge Summary ---
Discharge Summary (SDC) - Discharge Final Diagnosis: Oncology recomends removal of her ovaries because of her breast cancer. Date of Surgery: 01/07/19 Discharge Date: 01/07/19 Condition: Good Treatment or Instructions: follow up end of this week or early next week. Referrals: NATI NGUYỄN MD [ACTIVE STAFF] - 01/22/19 3:00 pm (Please keep your scheduled follow up appointment with Dr Nguyễn on January 22 at 3:00. If you have any questions please call the office directly at .) Discharge Diet: Regular Discharge Activity: Balance Activity w/Rest Home Care Assistance: None Needed, Provided by Family Report the Following to Your Physician Immediately: Shortness of Breath, Increa se in Pain, Fever over 101 Degrees
[2019-01-07 17:08] VITALS: BP 124/78
[2019-01-07] MEDS ORDERED: DOCUSATE SODIUM 100 MG CAPSULE PO SCH (18:00)
[2019-01-07] MEDS ORDERED: METOPROLOL TARTRATE 100 MG TABLET PO SCH (22:00)
[2019-01-08] MEDS ORDERED: TRIAMTERENE/HYDROCHLOROTHIAZID 75-50 MG TABLET PO SCH (10:00)
[2019-01-08] MEDS ORDERED: IBUPROFEN 800 MG TABLET PO SCH (12:00)
== END 2019-01-07 17:45 | disposition home or self-care (01) ==
LOC: OROUT 05:43 → 2N 11:53 → OROUT 17:45
PROVIDERS: ATTEND Obstetrics & Gynecology
DX: Z15.02 Genetic susceptibility to malignant neoplasm of ovary (principal); Z53.31 Laparoscopic surgical procedure converted to open procedure; N73.6 Female pelvic peritoneal adhesions (postinfective); Z85.3 Personal history of malignant neoplasm of breast; I10 Essential (primary) hypertension; Z79.899 Other long term (current) drug therapy; Z87.891 Personal history of nicotine dependence
CPT/HCPCS: 58720; 36415 ×2; 84132; 85027; 81005; 81025; 88305 ×2; 94799; 49329; J2250; J3490 ×4; J0690; J1100; J1885; J3010; J1170; J2370; J2550; J0330; J2405; J2704; J0131; 840

== ENCOUNTER → 2019-02-20 | Outpatient (CLI) | payer MEDICAID ==
--- NOTE | 2019-02-20 09:13 | WOMENS IMAGING REPORT ---
EXAM DESCRIPTION: BONE DENSITY HIP/SPINE COMPLETED DATE/TIME: 02/20/2019 8:16 am REASON FOR STUDY: M81.0 AGE RELATED OSTEOPOROSIS WITHOUT CURRENT PATHOLOGICAL FRACTURE M81.0 AGE-RE LATED OSTEOPOROSIS W/O CURRENT PATHOLOGICAL FRAC COMPARISON: None. TECHNIQUE: Dual-Energy X-ray Absorptiometry (DEXA) of the AP Spine and Hip. LIMITATIONS: None. FINDINGS: LUMBAR SPINE: The bone mineral density (BMD) measured from L1-L4 in the AP projection correlates with a T-score of -1.9, which is osteopenia as defined by the World Health Organization. HIP: The bone mineral density (BMD) measured in the left hip correlates with a T-score of -0.8, which is n ormal as defined by the World Health Organization. IMPRESSION: 1. LUMBAR SPINE: OSTEOPENIA. 2. HIP: NORMAL. COMMENT: The World Health Organization defines low BMD as follows: T-score: Normal: Greater than -1.0 Osteopenia: Between -1.0 and -2.5 Osteoporosis: Less than -2.5 without fractures Established osteoporosis: Less than -2.5 with fractures In general, you may wish to consider: Diagnosis Treatment Follow-up DEXA Normal BMD Prevention 2-3 years Osteopenia Prevention/Therapy 1-2 years Osteoporosis Therapy Yearly TECHNICAL DOCUMENTATION: JOB ID: [id number] [email or web address]- All Rights Reserved Reading location - IP/workstation name: [email or web address]
== END ==
LOC: WI 07:57
PROVIDERS: ATTEND Physician Assistant Medical
DX: M81.0 Age-related osteoporosis without current pathological fracture (principal)
CPT/HCPCS: 77080

== ENCOUNTER 2019-05-23 15:45 | Emergency (ER) | payer MEDICAID ==
--- NOTE | 2019-05-23 16:43 | ER Document Report ---
ED Medical Screen (RME) - General Chief Complaint: Urinary Problem Stated Complaint: FEMALE ISSUES Time Seen by Provider: 05/23/19 16:38 Primary Care Provider: RYDER BE PA-C [Primary Care Provider] - Follow up as needed TRAVEL OUTSIDE OF THE [place] IN LAST 30 DAYS: No - HPI Notes: 05/23/19 16:42 Patient is a 53-year-old female with a history of breast cancer currently in remission, chronic back pain and under pain management who presents complaining of vaginal discharge, significant foul odor, light vaginal bleeding, and intermittent pelvic pain that is been ongoing since August. Patient states that she has been seen by [facility] without resolved. She is able to eat and drink without difficulty. She is urinating normally and having normal bowel movements. Denies DAVE, fever, neck pain, URI, CP, SOB, dysuria, or rash. I have treated and performed a rapid initial assessment of this patient. A comprehensive ED assessment and evaluation of the patient, analysis of test results and completion of medical decision making process will be conducted by additional ED providers. PHYSICAL EXAMINATION: GENERAL: Well-appearing, well-nourished and in no acute distress. A&Ox4. Answers questions appropriately. LUNGS: Breath sounds clear to auscultation bilaterally and equal. No wheezes rales or rhonchi. HEART: Regular rate and rhythm without murmurs, rubs, gallops. ABDOMEN: Soft, nondistended abdomen. No guarding, no rebound. Normal bowel sounds present. No CVA tenderness bilaterally. + mild lower pelvic tenderness (cannot elicit thorough abd exam w/o bed, however). - Related Data Allergies/Adverse Reactions: ofloxacin [From Floxin] Allergy (Mild, Verified 05/23/19 16:05) rash Past Medical History - Past Medical History Cardiac Medical History: Reports: Hx Hypercholesterolemia, Hx Hypertension - on meds Denies: Hx Coronary Artery Disease, Hx Heart Attack Pulmonary Medical History: Denies: Hx Asthma, Hx Bronchitis, Hx COPD, Hx Pneumonia, Hx Tuberculosis Neurological Medical History: Denies: Hx Cerebrovascular Accident, Hx Seizures GI Medical History: Reports: Hx Hiatal Hernia. Denies: Hx Hepatitis, Hx Ulcer Musculoskeltal Medical History: Denies Hx Arthritis Traumatic Medical History: Reports: Hx Fractures Infectious Medical History: Denies: Hx Hepatitis Past Surgical History: Reports: Hx Appendectomy, Hx Hysterectomy. Denies: Hx Mastectomy, Hx Open Heart Surgery, Hx Pacemaker - Immunizations Hx Diphtheria, Pertussis, Tetanus Vaccination: Yes History of Influenza Vaccine for 07/2017 - 12/2017 Season: Yes Influenza Administration Date for 07/2017 - 12/2017 Season: 07/23/18 Physical Exam - Vital signs Vitals: Temp Pulse Resp BP Pulse Ox 98.5 F 78 12 141/79 H 95 05/23/19 16:10 05/23/19 16:10 05/23/19 16:10 05/23/19 16:10 05/23/19 16:10 Course - Vital Signs Vital signs: Temp Pulse Resp BP Pulse Ox 98.5 F 78 12 141/79 H 95 05/23/19 16:10 05/23/19 16:10 05/23/19 16:10 05/23/19 16:10 05/23/19 16:10 Doctor's Discharge - Discharge Referrals: RYDER BE PANiteshC [Primary Care Provider] - Follow up as needed
[2019-05-23 17:22] LABS: ABSOLUTE EOSINOPHILS # (AUTO) 0.1 10^3/uL (0.0-0.6); ABSOLUTE LYMPHOCYTES (AUTO) 1.7 10^3/uL (0.5-4.7); ABSOLUTE MONOCYTES (AUTO) 0.7 10^3/uL (0.1-1.4); ABSOLUTE NEUT (AUTO) 4.6 10^3/uL (1.7-8.2); BASOPHILS % (AUTO) 0.6 % (0-2); EOSINOPHILS % (AUTO) 1.7 % (0-6); HEMATOCRIT 41.4 % (36.0-47.0); HEMOGLOBIN 14.3 g/dL (12.0-15.5); LYMPHOCYTES % (AUTO) 23.7 % (13-45); MEAN CORPUSCULAR HEMOGLOBIN 32.1 pg (27.0-33.4); MEAN CORPUSCULAR HGB CONC 34.6 g/dL (32.0-36.0); MEAN CORPUSCULAR VOLUME 93 fl (80-97); PLATELET COUNT 158 10^3/uL (150-450); RED BLOOD COUNT 4.47 10^6/uL (3.72-5.28); RED CELL DISTRIBUTION WIDTH 12.8 % (11.5-14.0); TOTAL CELLS COUNTED % (AUTO) 100 %; WHITE BLOOD COUNT 7.2 10^3/uL (4.0-10.5)
[2019-05-23 17:40] LABS: ALANINE AMINOTRANSFERASE 36 U/L (9-52); ALBUMIN 4.5 g/dL (3.5-5.0); ALKALINE PHOSPHATASE 99 U/L (38-126); ANION GAP 9 (5-19); ASPARTATE AMINO TRANSFERASE 31 U/L (14-36); BILIRUBIN,DIRECT 0.1 mg/dL (0.0-0.4); BILIRUBIN,TOTAL 0.8 mg/dL (0.2-1.3); BLOOD UREA NITROGEN 19 mg/dL (7-20); CALCIUM 10.2 mg/dL (8.4-10.2); CARBON DIOXIDE 27 mmol/L (22-30); CHLORIDE 103 mmol/L (98-107); GLUCOSE 96 mg/dL (75-110); POTASSIUM 3.7 mmol/L (3.6-5.0); TOTAL PROTEIN 7.6 g/dL (6.3-8.2)
[2019-05-23 17:41] LABS: APPEARANCE,URINE CLOUDY; BILIRUBIN,URINE NEGATIVE (NEGATIVE); COLOR,URINE YELLOW; GLUCOSE, URINE NEGATIVE (NEGATIVE); KETONES,URINE NEGATIVE (NEGATIVE); LEUKOCYTE ESTERASE,URINE LARGE (NEGATIVE); NITRITE,URINE NEGATIVE (NEGATIVE); PROTEIN,URINE NEGATIVE (NEGATIVE); URINE SPECIFIC GRAVITY 1.023; UROBILINOGEN,URINE NEGATIVE mg/dL (<2.0)
--- NOTE | 2019-05-23 18:08 | RADIOLOGY REPORT (SQ) ---
EXAM DESCRIPTION: U/S NON-OB PELVIS TV W/O DOP COMPLETED DATE/TIME: 05/23/2019 5:45 pm REASON FOR STUDY: pelvic pain, bleeding, h/o breast CA COMPARISON: None. TECHNIQUE: Dynamic and static grayscale images acquired of the pelvis via transvaginal approach and recorded on PACS. Additional selected color Doppler and spectral images recorded. LIMITATIONS: None. FINDINGS: Prior hysterectomy oophorectomy. Imaging the pelvis shows no masses. No fluid collection s. There is increased echogenicity in the region of the vaginal cuff. IMPRESSION: No pelvic masses or fluid collections are seen. There may be air in the vaginal fornice s versus calcifications in the region of the vaginal cuff. TECHNICAL DOCUMENTATION: JOB ID: [id number] [employer]- All Rights Reserved Rev-03/09 Reading location - IP/workstation name: [email or web address]
--- NOTE | 2019-05-23 18:18 | ER Document Report ---
HPI - HPI Time Seen by Provider: 05/23/19 16:38 Pain Level: 3 Notes: 33-year-old female presents the ED for complaints of vaginal discharge, hematuria, foul vaginal smell with lower back pain for the last for the last 9 months. Denies any nausea vomiting or diarrhea. Patient reports that she had metastatic breast cancer, she did have her hysterectomy done approximately 6 months ago. Eating and drinking without issues. Has not been evaluated by her provider for this issue. Denies fevers, chills, chest pain,palpitations, shortness of breath, dyspnea, nausea, vomiting, diarrhea, abdominal pain, hematuria, LH, dizziness, syncope, headaches, wheezing, ST, URI, neck pain, weakness, bowel or bladder dysfunction, saddle anesthesia, numbness or tingling in bilateral upper or lower extremities equally, muscle paralysis, weakness in bilateral upper or lower extremities equally or rash. - REPRODUCTIVE Reproductive: DENIES: : - DERM Skin Color: Normal Past Medical History - General Information source: Patient - Social History Smoking Status: Current Every Day Smoker Chew tobacco use (# tins/day): No Frequency of alcohol use: None Drug Abuse: None Family History: Reviewed & Not Pertinent Patient has suicidal ideation: No Patient has homicidal ideation: No - Past Medical History Cardiac Medical History: Reports: Hx Hypercholesterolemia, Hx Hypertension - on meds Denies: Hx Coronary Artery Disease, Hx Heart Attack Pulmonary Medical History: Denies: Hx Asthma, Hx Bronchitis, Hx COPD, Hx Pneumonia, Hx Tuberculosis Neurological Medical History: Denies: Hx Cerebrovascular Accident, Hx Seizures Renal/ Medical History: Denies: Hx Peritoneal Dialysis GI Medical History: Reports: Hx Hiatal Hernia. Denies: Hx Hepatitis, Hx Ulcer Musculoskeletal Medical History: Denies Hx Arthritis Traumatic Medical History: Reports: Hx Fractures Infectious Medical History: Denies: Hx Hepatitis Past Surgical History: Reports: Hx Appendectomy, Hx Hysterectomy. Denies: Hx Mastectomy, Hx Open Heart Surgery, Hx Pacemaker - Immunizations Hx Diphtheria, Pertussis, Tetanus Vaccination: Yes Hx Pneumococcal Vaccination: 05/16/12 Vertical Provider Document - CONSTITUTIONAL Agree With Documented VS: Yes Exam Limitations: No Limitations Notes: PHYSICAL EXAMINATION: GENERAL: Well-appearing, well-nourished and in no acute distress. HEAD: Atraumatic, normocephalic. EYES: Pupils equal round and reactive to light, extraocular movements intact, conjunctiva are normal. ENT: Nares patent, oropharynx clear without exudates. Moist mucous membranes. NECK: Normal range of motion, supple without lymphadenopathy LUNGS: Breath sounds clear to auscultation bilaterally and equal. No wheezes rales or rhonchi. HEART: Regular rate and rhythm without murmurs ABDOMEN: Soft, nontender, nondistended abdomen. No guarding, no rebound. No masses appreciated. Female : External genitalia without erythema, exudate or discharge. Vaginal vault is without discharge. no cervix. There is no bleeding noted. No masses are palpated. scant blood in the vaginal vault without clots, os closed, no adnexal tenderness or mass Musculoskeletal: Normal range of motion, no pitting or edema. No cyanosis. NEUROLOGICAL: Cranial nerves grossly intact. Normal speech, normal gait. Normal sensory, motor exams PSYCH: Normal mood, normal affect. SKIN: Warm, Dry, normal turgor, no rashes or lesions noted. - INFECTION CONTROL TRAVEL OUTSIDE OF THE [place] IN LAST 30 DAYS: No Course - Re-evaluation Re-evalutation: 53-year-old female for evaluation of vaginal discharge and for an extended period of time. Wet mount shows BV, patient does have a UTI will treat, urine culture completed. Transvaginal ultrasound does show that she had vaginal frequencies at the vaginal cuff, has a complete hysterectomy. Vital signs stable. Nurse's notes reviewed. Pelvic exam benign aside from positive with test. Patient treated with Flagyl. Go to your already scheduled ANESTHESIOLOGIST ATTENDING appointment next week, if anything becomes worse such as worsening pain, any abdominal pain vaginal bleeding return to the ED immediately. After performing a Medical Screening Examination, I estimate there is LOW risk for ACUTE APPENDICITIS, BOWEL OBSTRUCTION, ACUTE CHOLECYSTITIS, PERFORATED DIVERTICULITIS, INCARCERATED HERNIA, PANCREATITIS, PELVIC INFLAMMATORY DISEASE, PERFORATED ULCER, ECTOPIC , or TUBO-OVARIAN ABSCESS, thus I consider the discharge disposition reasonable. Also, there is no evidence or peritonitis, sepsis, or t oxicity. I have reevaluated this patient multiple times and no significant life threatening changes are noted. The patient and I have discussed the diagnosis and risks, and we agree with discharging home with close follow-up with the understanding that symptoms and presentations can change. We also discussed returning to the Emergency Department immediately if new or worsening symptoms occur. We have discussed the symptoms which are most concerning (e.g., bloody stool, fever, changing or worsening pain, vomiting) that necessitate immediate return. - Vital Signs Vital signs: Temp Pulse Resp BP Pulse Ox 98.5 F 78 12 141/79 H 95 05/23/19 16:10 05/23/19 16:10 05/23/19 16:10 05/23/19 16:10 05/23/19 16:10 - Laboratory Result Diagrams: 05/23/19 17:00 05/23/19 17:00 Laboratory results interpreted by me: 05/23/19 05/23/19 16:50 17:00 Creatinine 0.46 L Urine Blood LARGE H Ur Leukocyte Esterase LARGE H Urine Ascorbic Acid 40 H Discharge - Discharge Clinical Impression: UTI (urinary tract infection), Bacterial vaginosis Condition: Stable Disposition: HOME, SELF-CARE Instructions: Nitrofurantoin ([facility]), Urinary Tract Infection ([facility]), Urinary Anesthetic Agent ([facility]), Vaginosis, Bacterial ([facility]) Additional Instructions: Return immediately for any new or worsening symptoms. Follow up with primary care provider, call tomorrow to make followup appointment. go to your already scheduled bit sharpener appt in 5 days as already scheduled Prescriptions: Metronidazole [Flagyl] 500 mg PO BID #14 tablet Nitrofurantoin Macrocrystal [Macrodantin] 100 mg PO BID #20 capsule Phenazopyridine HCl [Pyridium] 200 mg PO TIDP PRN #9 tablet PRN Reason: Forms: Return to Work Referrals: RYDER BE PA-C [ALLIED HEALTH PROFESSIONAL] - Follow up as needed
[2019-05-23 18:35] LABS: EPITHELIALS (WET MOUNT) 3+ EPITHELIALS SEEN; RBCS (WET MOUNT) 1+ RBCS SEEN; T.VAGINALIS (WET MOUNT) NO TRICHOMONAS SEEN; WBCS (WET MOUNT) NO WBCS SEEN; YEAST (WET MOUNT) NO YEAST SEEN
[2019-05-23] MEDS ORDERED: KETOROLAC TROMETHAMINE 60 MG/2 ML SDV IM ONE (19:13)
[2019-05-23 19:51] VITALS: BP 120/81
[2019-05-23 20:01] LABS: CHLAM PCR NOT DETECTED (NOT DETECT)
== END 2019-05-23 19:51 | disposition home or self-care (01) ==
LOC: ER 15:45
DX: N39.0 Urinary tract infection, site not specified (principal); N76.0 Acute vaginitis; B96.89 Other specified bacterial agents as the cause of diseases classified elsewhere; F17.200 Nicotine dependence, unspecified, uncomplicated; E78.00 Pure hypercholesterolemia, unspecified; I10 Essential (primary) hypertension; Z90.710 Acquired absence of both cervix and uterus
CPT/HCPCS: 99284; 96372; 36415; 87086; 87210; 85025; 87088; 80053; 81001; 87186; 87491; 87591; 76830; J1885

== ENCOUNTER 2019-06-07 05:33 | Day surgery (SDC) | payer MEDICAID ==
[~2019-06-07 05:33] MED LIST changes: +CEFAZOLIN SODIUM 2 GM in DEXTROSE 5%-WATER 100 ML IV PRN; -LACTATED RINGERS 1000 ML IV PRN; -LIDOCAINE 0.5% INJ-PF (5 MG/ML) 50 ML SDV SUBCUT PRN
[2019-06-07] MEDS ORDERED: CEFAZOLIN 1 GM/D5W RTU 1 GM/50 ML RTUPB IV ONE (05:44)
[2019-06-07] MEDS ORDERED: RINGERS SOLUTION,LACTATED 1,000 ML IV PRN (06:02)
[2019-06-07] MEDS ORDERED: PROPOFOL INJ 200 MG/20 ML VIAL IV ONE (06:20)
[2019-06-07] MEDS ORDERED: MIDAZOLAM 2 MG/2 ML INJ ONE (06:20)
[2019-06-07] MEDS ORDERED: ONDANSETRON HCL INJ/PF 4 MG/2 ML SDV ONE (06:20)
[2019-06-07] MEDS ORDERED: FENTANYL CITRATE INJ/PF 100 MCG/2 ML AMPUL ONE (06:20)
[2019-06-07] MEDS ORDERED: LIDOCAINE 0.5% INJ-PF (5 MG/ML) 50 ML SDV ONE (06:21)
[2019-06-07] MEDS ORDERED: DIPHENHYDRAMINE HCL 50 MG/ML VIAL IV PRN (06:59)
[2019-06-07] MEDS ORDERED: MEPERIDINE HCL/PF INJ 25 MG/1 ML DISP.SYRIN IV PRN (06:59)
[2019-06-07] MEDS ORDERED: FENTANYL CITRATE INJ/PF 100 MCG/2 ML AMPUL IV PRN ×3 (06:59)
[2019-06-07] MEDS ORDERED: ONDANSETRON HCL INJ/PF 4 MG/2 ML SDV IV PRN (06:59)
[2019-06-07] MEDS ORDERED: PROMETHAZINE HCL INJ 25 MG/1 ML VIAL IV PRN ×2 (06:59)
[2019-06-07] MEDS ORDERED: LIDOCAINE 1% INJ-PF (10 MG/ML) 30 ML SDV ONE (07:05)
[2019-06-07] MEDS: FENTANYL CITRATE INJ/PF 100 MCG/2 ML AMPUL ONE ×2 (08:30→08:35)
[2019-06-07] MEDS: HYDROMORPHONE HCL INJ/PF 2 MG/ML AMPULE ONE ×2 (08:40→08:45)
[2019-06-07] MEDS ORDERED: PROMETHAZINE HCL INJ 25 MG/1 ML VIAL IM PRN (09:30)
[2019-06-07 11:38] VITALS: BP 111/66
--- NOTE | 2019-06-07 12:54 | OPERATIVE REPORT E ---
Operative Report NAME: ABIMBOLA NORMAN : 1965 AGE: 53Y DATE OF SURGERY: 06/07/2019 ROOM: PREOPERATIVE DIAGNOSIS: Retained vaginal sponge. POSTOPERATIVE DIAGNOSIS: Extrusion of vaginal apical support mesh. PROCEDURE: Excision of vaginal mesh. SURGEON: ABRAHAM BURNHAM M.D. ANESTHESIA: General LMA. FINDINGS: A mesh product consisting of 2 segments of 3 cm in length mesh, noted to be extruded in the ofice, originally thought to be a retained 4x4 from surgery in December 2018, located at apex of the vaginal cuff. This was done under hysteroscopic (video) macroscopic assistance. INDICATIONS FOR PROCEDURE: The patient has had a foul vaginal odor for the last several months, was unresponsive to the usual outpatient management. Ultimately, a segment of mesh was brought out into the vagina in the office. Appeared to be an old retained 4 x 4. The usual risks of bleeding, infection, anesthesia were discussed and the patient understood. PROCEDURE: The patient was taken to the operating room and placed in the modified lithotomy position. After adequate anesthesia ascertained, prepped and draped in the usual manner for an exam under anesthesia and removal of foreign body from the vagina. Upon further traction on the remaining product in her vagina, it appeared to be certainly more involved than a retained sponge. It appeared to come out to a certain point and then stop as this was firmly attached into the pelvis. Under hysteroscopic _macro view, the area came to a point and further retraction was unsuccessful. A further dissection removed and another segment of this product. This was done and mesh was left flush to the vagina proper. Minimal bleeding was noted at the completion of the procedure. This was all vaginal apical in nature. The procedure was stopped at this point due to lack of information of my procedures done on her and the limits of the planned procedure were met. At completion of procedure, all sponge and needle counts were correct. The patient was taken to recovery room in stable condition. DICTATING PHYSICIAN: ABRAHAM BURNHAM M.D. [id number] PHY#: [id number] ID: [id number] JOB#: [id number] ACCT: [id number] cc:ABRAHAM BURNHAM M.D. > [facility] [address] [facility]
[2019-06-07] MEDS ORDERED: IBUPROFEN 800 MG TABLET PO SCH (14:00)
== END 2019-06-07 10:45 | disposition home or self-care (01) ==
LOC: OROUT 05:33
PROVIDERS: ATTEND Specialist
DX: T83.721A Exposure of implanted vaginal mesh into vagina, initial encounter (principal); Y83.8 Other surgical procedures as the cause of abnormal reaction of the patient, or of later complication, without mention of misadventure at the time of the procedure; Y92.89 Other specified places as the place of occurrence of the external cause; I10 Essential (primary) hypertension; F17.210 Nicotine dependence, cigarettes, uncomplicated; Z85.3 Personal history of malignant neoplasm of breast
CPT/HCPCS: 36415; 84132; 88305 ×2; 57295; J2250; J0690; J3010; J3490; J1170; J2405; J2704; 940; J7060

== ENCOUNTER → 2019-07-03 | Outpatient (CLI) | payer MEDICAID ==
--- NOTE | 2019-07-03 16:41 | RADIOLOGY REPORT (SQ) ---
EXAM DESCRIPTION: HUMERUS LEFT COMPLETED DATE/TIME: 07/03/2019 3:26 pm REASON FOR STUDY: M25.519 PAIN IN UNSPECIFIED SHOULDER M25.519 PAIN IN UNSPECIFIED SHOULDER COMPARISON: None. NUMBER OF VIEWS: Two views. TECHNIQUE: Two radiographic images were acquired of the left humerus to include elbow and shoulder i n at least one projection. LIMITATIONS: None. FINDINGS: MINERALIZATION: Normal. BONES: No acute fracture or dislocation. No osseous lesion or periosteal bone formation. SOFT TISSUES: No swelling or radiopaque foreign body. OTHER: Surgical clips in the axilla. IMPRESSION: No acute osseous abnormality of the left humerus. TECHNICAL DOCUMENTATION: JOB ID: [id number] [employer]- All Rights Reserved Reading location - IP/workstation name: [email or web address]
--- NOTE | 2019-07-03 19:36 | RADIOLOGY REPORT (SQ) ---
EXAM DESCRIPTION: SHOULDER LEFT 2 OR MORE VIEWS COMPLETED DATE/TIME: 07/03/2019 3:26 pm REASON FOR STUDY: M25.519 PAIN IN UNSPECIFIED SHOULDER M25.519 PAIN IN UNSPECIFIED SHOULDER COMPARISON: None. NUMBER OF VIEWS: Three views. TECHNIQUE: Internal rotation, external rotation, and Y view images acquired of the left shoulder. LIMITATIONS: None. FINDINGS: MINERALIZATION: Normal. BONES: No acute fracture. No worrisome bone lesions. JOINTS: No dislocation. VISUALIZED LUNGS AND RIBS: No pneumothorax. No rib fracture. SOFT TISSUES: No radiopaque foreign body. OTHER: No other significant finding. IMPRESSION: NEGATIVE STUDY OF THE LEFT SHOULDER. NO RADIOGRAPHIC EVIDENCE OF ACUTE INJURY. TECHNICAL DOCUMENTATION: JOB ID: [id number] [employer]- All Rights Reserved Reading location - IP/workstation name: [email or web address]
== END ==
LOC: RAD 14:56
PROVIDERS: ATTEND Internal Medicine
DX: M25.512 Pain in left shoulder (principal)

== ENCOUNTER → 2019-07-15 | Outpatient (CLI) | payer MEDICAID ==
--- NOTE | 2019-07-15 15:06 | RADIOLOGY REPORT (SQ) ---
EXAM DESCRIPTION: NM WHOLE BODY BONE SCAN COMPLETED DATE/TIME: 07/15/2019 12:01 pm REASON FOR STUDY: MAL AYAD OF LOWER INNER QUADRANT OF LEFT FEMALE BREAST C50.312 MALIG NEOPLASM OF L OWER-INNER QUADRANT OF LEFT FEMAL COMPARISON: Plain radiograph left shoulder, CT scan 2018 RADIONUCLIDE AND DOSE: 21 millicuries Tc99m HDP. The route of agent administration: Intravenous. ADDITIONAL DRUGS AND DOSES: None. TECHNIQUE: Routine delayed images at 3 hour post radionuclide injection acquired of the bony skeleto n including anterior and posterior whole-body projections and additional focused images as needed. LIMITATIONS: None. FINDINGS: BONES: Minimal scattered areas of activity posterior right ribs. Focal increased activity of the right humeral head. KIDNEYS: Symmetric excretion without obstruction. OTHER: No other significant finding. IMPRESSION: Minimal activity of the posterior right ribs and activity of the right humeral head. RECOMMENDATION: Recommend plain radiographic correlation of the right ribs and right shoulder. COMMENT: Quality measure 147: Current bone scan is compared with any available plain radiographs, p rior bone scans, and CT/MRI. TECHNICAL DOCUMENTATION: JOB ID: [id number] [employer]- All Rights Reserved Reading location - IP/workstation name: [email or web address]
== END ==
LOC: RAD 08:20
PROVIDERS: ATTEND Internal Medicine
DX: C50.312 Malignant neoplasm of lower-inner quadrant of left female breast (principal)
CPT/HCPCS: 78306; A9561; Q9969

== ENCOUNTER → 2019-07-18 | Outpatient (CLI) | payer MEDICAID ==
--- NOTE | 2019-07-18 14:30 | RADIOLOGY REPORT (SQ) ---
EXAM DESCRIPTION: RIBS RIGHT W/PA CHEST; SHOULDER RIGHT 2 OR MORE VIEWS; HUMERUS RIGHT COMPLETED DATE/TIME: 07/18/2019 1:58 pm REASON FOR STUDY: C50.312 MALIG NEOPLASM OF LOWER-INNER QUADRANT OF LEFT FEMALE BREAST COMPARISON: Bone scan from 3 days ago. FINDINGS: Three views right shoulder: Suspect patchy osteopenia. No lytic or blastic bone lesion. No acute abnormality. Mild degenerative sclerosis in the glenohumeral articulation. Two views right humerus: Includes the remainder of the right humerus below the shoulder. Intact wit hout bone lesion or fracture. 6 views, PA chest and right ribs: Lungs clear. Port in place. No rib lesions or fracture detected. TECHNICAL DOCUMENTATION: JOB ID: [id number] Reading location - IP/workstation name: [email or web address]
--- NOTE | 2019-07-18 14:30 | RADIOLOGY REPORT (SQ) ---
EXAM DESCRIPTION: RIBS RIGHT W/PA CHEST; SHOULDER RIGHT 2 OR MORE VIEWS; HUMERUS RIGHT COMPLETED DATE/TIME: 07/18/2019 1:58 pm REASON FOR STUDY: C50.312 MALIG NEOPLASM OF LOWER-INNER QUADRANT OF LEFT FEMALE BREAST COMPARISON: Bone scan from 3 days ago. FINDINGS: Three views right shoulder: Suspect patchy osteopenia. No lytic or blastic bone lesion. No acute abnormality. Mild degenerative sclerosis in the glenohumeral articulation. Two views right humerus: Includes the remainder of the right humerus below the shoulder. Intact wit hout bone lesion or fracture. 6 views, PA chest and right ribs: Lungs clear. Port in place. No rib lesions or fracture detected. TECHNICAL DOCUMENTATION: JOB ID: [id number] Reading location - IP/workstation name: [email or web address]
--- NOTE | 2019-07-18 14:30 | RADIOLOGY REPORT (SQ) ---
EXAM DESCRIPTION: RIBS RIGHT W/PA CHEST; SHOULDER RIGHT 2 OR MORE VIEWS; HUMERUS RIGHT COMPLETED DATE/TIME: 07/18/2019 1:58 pm REASON FOR STUDY: C50.312 MALIG NEOPLASM OF LOWER-INNER QUADRANT OF LEFT FEMALE BREAST COMPARISON: Bone scan from 3 days ago. FINDINGS: Three views right shoulder: Suspect patchy osteopenia. No lytic or blastic bone lesion. No acute abnormality. Mild degenerative sclerosis in the glenohumeral articulation. Two views right humerus: Includes the remainder of the right humerus below the shoulder. Intact wit hout bone lesion or fracture. 6 views, PA chest and right ribs: Lungs clear. Port in place. No rib lesions or fracture detected. TECHNICAL DOCUMENTATION: JOB ID: [id number] Reading location - IP/workstation name: [email or web address] [email or web address] OUTSOLE [email or web address]
== END ==
LOC: RAD 13:31
PROVIDERS: ATTEND Internal Medicine
DX: C50.312 Malignant neoplasm of lower-inner quadrant of left female breast (principal)

== ENCOUNTER → 2019-08-02 | Outpatient (CLI) | payer MEDICAID ==
[~2019-08-02] MED LIST changes: -CEFAZOLIN SODIUM 2 GM in DEXTROSE 5%-WATER 100 ML IV PRN; +DIAZEPAM 5 MG TABLET ONE
--- NOTE | 2019-08-02 14:38 | RADIOLOGY REPORT (SQ) ---
EXAM DESCRIPTION: MRI LT UPPER EXTREMITY COMBO COMPLETED DATE/TIME: 08/02/2019 1:52 pm REASON FOR STUDY: (M25.512)PAIN IN LEFT SHOULDER;(C50.312)MALIG NEOPLASM OF LOWER-INNER QUADR C50.31 2 MALIG NEOPLASM OF LOWER-INNER QUADRANT OF LEFT FEMAL M25.512 PAIN IN LEFT SHOULDER COMPARISON: None. TECHNIQUE: Multiplanar imaging of the left shoulder, chest wall and most of the upper arm to include T1-weighted, postcontrast T1-weighted, and T2-weighted images. CONTRAST TYPE AND DOSE: 15 mL Dotarem. RENAL FUNCTION: Not indicated. ACR Type II contrast agent associated with few, if any, unconfounded cases of NSF LIMITATIONS: Motion. FINDINGS: BONE MARROW: Normal. SOFT TISSUES: No mass or obvious inflammation. Scan was protocol for potential mass and not for eval uation of the rotator cuff. No obvious rotator cuff tear. OTHER: No other significant finding. IMPRESSION: No mass or adenopathy. TECHNICAL DOCUMENTATION: JOB ID: [id number] [employer]- All Rights Reserved Reading location - IP/workstation name: [email or web address]
== END ==
LOC: RAD 07-30 08:28
PROVIDERS: ATTEND Internal Medicine
DX: C50.312 Malignant neoplasm of lower-inner quadrant of left female breast (principal); M25.512 Pain in left shoulder
CPT/HCPCS: 82565; 73220; A9576; J3490; J1642

== ENCOUNTER → 2019-08-15 | Outpatient (CLI) | payer MEDICAID ==
[2019-08-15 16:22] LABS: ANION GAP 11 (5-19); BLOOD UREA NITROGEN 14 mg/dL (7-20); CARBON DIOXIDE 29 mmol/L (22-30); CHLORIDE 100 mmol/L (98-107); GLUCOSE 132 mg/dL (75-110); POTASSIUM 3.7 mmol/L (3.6-5.0)
--- NOTE | 2019-08-15 20:18 | EKG REPORT ---
SEVERITY:- NORMAL ECG - SINUS RHYTHM : Confirmed by: Kay Lane MD 15-Aug-2019 20:17:09
== END ==
LOC: OD 15:19
PROVIDERS: ATTEND Orthopaedic Surgery
DX: Z01.810 Encounter for preprocedural cardiovascular examination (principal); Z01.89 Encounter for other specified special examinations
CPT/HCPCS: 36415; 80048; 93005; 93010

== ENCOUNTER 2019-10-29 06:53 | Day surgery (SDC) | payer MEDICAID ==
[~2019-10-29 06:53] MED LIST changes: -DIAZEPAM 5 MG TABLET ONE; +FENTANYL CITRATE INJ/PF 100 MCG/2 ML AMPUL ONE; +KETOROLAC TROMETHAMINE 0.45% 4 DROP/0.4 ML DROPERETTE OS PRN; +MIDAZOLAM 2 MG/2 ML INJ ONE; +ONDANSETRON HCL INJ/PF 4 MG/2 ML SDV ONE
[2019-10-29] MEDS: TETRACAINE HCL 0.5% OPH SOLN 4 ML OS PRN ×4 (07:08→07:48)
[2019-10-29] MEDS: TROPICAMIDE 1% OPH SOLN 15 ML OS PRN ×3 (07:08→07:28)
[2019-10-29] MEDS: CYCLOPENTOLATE 0.2%/PHENYLEPHRINE 1% OPH SOLN 2 ML OS PRN ×3 (07:08→07:28)
[2019-10-29] MEDS: BESIFLOXACIN HCL 0.6% OPH SUSP 5 ML BOTTLE OS PRN ×4 (07:09→08:12)
[2019-10-29] MEDS ORDERED: LIDOCAINE 1%/PHENYLEPHRINE 1.5% 1 ML VIAL ONE (07:13)
[2019-10-29] MEDS ORDERED: CHONDR SU A NA/HYALUR INTRAOC KIT (SURGICARE) ONE (07:13)
[2019-10-29] MEDS ORDERED: EPINEPHRINE INJ/PF 1 MG/1 ML AMPULE ONE (07:13)
[2019-10-29] MEDS: DORZOLAMIDE HCL 2%/TIMOLOL MALEAT 0.5% OPH SOLN 10 ML OS PRN ×2 (08:12)
[2019-10-29] MEDS ORDERED: MIDAZOLAM 2 MG/2 ML INJ ONE (08:16)
--- NOTE | 2019-10-29 17:15 | Operative Report ---
Operative Report-[facility] Operative Report: DATE OF SURGERY: 10/29/2019 PREOPERATIVE DIAGNOSIS: Cataracts, left eye POSTOPERATIVE DIAGNOSIS: Cataract, left eye OPERATION: Cataract extraction with insertion of an IOL of the left eye. Intraocular Lens Model: [18.0 sn60wf] Reason for surgery was difficulty seeing the computer screen SURGEON: Mendez Brunson MD ANESTHESIA: Topical PROCEDURE: After obtaining appropriate consent, the patient's left eye was prepped and draped in a sterile fashion as well as the surgeon in the sterile manner and cataract surgery was started. First a paracentesis blade was used to make a side-port incision. Viscoelastic was used to inflate the anterior chamber. Next a 2.4 mm incision was made with a 2.4 mm blade, clear corneal temporarily. A continuous capsulorrhexis was made using a cystotome and Utrata forceps. Following this hydrodissection was carried out to make the lens fully loose and mobile and it was rotated 90 degrees. Following this, a divide and conquer technique was used to phacoemulsify the lens. The remaining cortex was removed with an irrigation/aspiration. Provisc was instilled into the capsular bag to inflate the bag.The intraocular lens was placed. The remaining viscoelastic material was removed with irrigation/aspiration. Following this, the incision was found to be watertight. Besivance and Cosopt was instilled into the eye and a protective shield was placed over the eye. The patient was returned to the postoperative recovery in a stable condition.
== END 2019-10-29 08:51 | disposition home or self-care (01) ==
LOC: SC 06:53
PROVIDERS: ATTEND Internal Medicine
DX: H25.12 Age-related nuclear cataract, left eye (principal); H40.1131 Primary open-angle glaucoma, bilateral, mild stage; H04.123 Dry eye syndrome of bilateral lacrimal glands; Z96.1 Presence of intraocular lens; I10 Essential (primary) hypertension; E78.00 Pure hypercholesterolemia, unspecified; F17.210 Nicotine dependence, cigarettes, uncomplicated; Z88.1 Allergy status to other antibiotic agents; Z79.899 Other long term (current) drug therapy; Z79.891 Long term (current) use of opiate analgesic; D64.9 Anemia, unspecified; Z85.3 Personal history of malignant neoplasm of breast
CPT/HCPCS: 66984; V2632; J2250; J3490 ×3; J0171; J3010; J2405; J2370

== ENCOUNTER → 2020-02-10 | Outpatient (CLI) | payer MEDICAID ==
--- NOTE | 2020-02-10 13:25 | RADIOLOGY REPORT (SQ) ---
EXAM DESCRIPTION: FOREARM RIGHT IMAGES COMPLETED DATE/TIME: 02/10/2020 1:06 pm REASON FOR STUDY: M79.89 OTHER SPECIFIED SOFT TISSUE DISORDERS M79.89 OTHER SPECIFIED SOFT TISSUE D ISORDERS M79.609 PAIN IN UNSPECIFIED LIMB COMPARISON: None. NUMBER OF VIEWS: Two views. TECHNIQUE: Two radiographic images acquired of the right forearm, including elbow and wrist in at le ast one projection. LIMITATIONS: None. FINDINGS: MINERALIZATION: Normal. BONES: No acute fracture. No worrisome bone lesions. SOFT TISSUES: No obvious swelling or foreign body. OTHER: No other significant finding. IMPRESSION: NEGATIVE STUDY OF THE RIGHT FOREARM. NO RADIOGRAPHIC EVIDENCE OF ACUTE INJURY. TECHNICAL DOCUMENTATION: JOB ID: [id number] 2010 [employer]- All Rights Reserved Reading location - IP/workstation name: [email or web address]
--- NOTE | 2020-02-10 13:27 | RADIOLOGY REPORT (SQ) ---
EXAM DESCRIPTION: HAND RIGHT 3 VIEWS IMAGES COMPLETED DATE/TIME: 02/10/2020 1:06 pm REASON FOR STUDY: M79.89 OTHER SPECIFIED SOFT TISSUE DISORDERS M79.89 OTHER SPECIFIED SOFT TISSUE D ISORDERS M79.609 PAIN IN UNSPECIFIED LIMB COMPARISON: None. EXAM PARAMETERS: NUMBER OF VIEWS: Three views. TECHNIQUE: AP, lateral and oblique radiographic images acquired of the right hand. LIMITATIONS: None. FINDINGS: MINERALIZATION: Normal. BONES: No acute fracture or dislocation. No worrisome bone lesions. JOINTS: No effusions. SOFT TISSUES: No soft tissue swelling. No foreign body. OTHER: No other significant finding. IMPRESSION: NEGATIVE STUDY OF THE RIGHT HAND. NO RADIOGRAPHIC EVIDENCE OF ACUTE INJURY. TECHNICAL DOCUMENTATION: JOB ID: [id number] 2010 [employer]- All Rights Reserved Reading location - IP/workstation name: [email or web address]
--- NOTE | 2020-02-10 13:28 | RADIOLOGY REPORT (SQ) ---
EXAM DESCRIPTION: ELBOW RIGHT OVER 2 VIEWS IMAGES COMPLETED DATE/TIME: 02/10/2020 1:06 pm REASON FOR STUDY: M79.89 OTHER SPECIFIED SOFT TISSUE DISORDERS M79.89 OTHER SPECIFIED SOFT TISSUE D ISORDERS M79.609 PAIN IN UNSPECIFIED LIMB COMPARISON: None. NUMBER OF VIEWS: Four views. TECHNIQUE: AP, lateral, and both oblique radiographic images acquired of the right elbow. LIMITATIONS: None. FINDINGS: MINERALIZATION: Normal. BONES: No acute fracture or dislocation. No worrisome bone lesions. JOINT: No effusion. Minimal osteophytosis at the elbow. SOFT TISSUES: No soft tissue swelling. No foreign body. OTHER: No other significant finding. IMPRESSION: NEGATIVE STUDY OF THE RIGHT ELBOW. NO RADIOGRAPHIC EVIDENCE OF ACUTE INJURY. TECHNICAL DOCUMENTATION: JOB ID: [id number] 2010 [employer]- All Rights Reserved Reading location - IP/workstation name: [email or web address]
--- NOTE | 2020-02-10 13:34 | RADIOLOGY REPORT (SQ) ---
EXAM DESCRIPTION: SHOULDER RIGHT 2 OR MORE VIEWS IMAGES COMPLETED DATE/TIME: 02/10/2020 1:06 pm REASON FOR STUDY: M79.89 OTHER SPECIFIED SOFT TISSUE DISORDERS M79.89 OTHER SPECIFIED SOFT TISSUE D ISORDERS M79.609 PAIN IN UNSPECIFIED LIMB COMPARISON: 07/15/2019. NUMBER OF VIEWS: Three views. TECHNIQUE: Internal rotation, external rotation, and Y view images acquired of the right shoulder. LIMITATIONS: None. FINDINGS: MINERALIZATION: Heterogeneous moth-eaten appearance at the proximal humerus, increased fro m prior. Remaining mineralization appears normal. BONES: No acute fracture dislocation. Irregular permeative lucency at the humeral head and proximal humerus. JOINTS: No dislocation. VISUALIZED LUNGS AND RIBS: No pneumothorax. No rib fracture. SOFT TISSUES: No radiopaque foreign body. OTHER: No other significant finding. IMPRESSION: Ill-defined moth-eaten permeative appearance of the proximal humerus concerning for unde rlying lesion. MR could be considered for confirmation. No definite fracture. TECHNICAL DOCUMENTATION: JOB ID: [id number] 2010 [employer]- All Rights Reserved Reading location - IP/workstation name: [email or web address]
--- NOTE | 2020-02-10 16:16 | RADIOLOGY REPORT (SQ) ---
EXAM DESCRIPTION: VENOUS UNILATERAL UPPER IMAGES COMPLETED DATE/TIME: 02/10/2020 3:15 pm REASON FOR STUDY: RUE SWELLING M79.89 OTHER SPECIFIED SOFT TISSUE DISORDERS M79.609 PAIN IN UNSPEC IFIED LIMB COMPARISON: None. TECHNIQUE: Dynamic and static pittman scale and color images acquired of the right arm venous system. S elected spectral images acquired with additional compression and augmentation maneuvers. The contrala teral subclavian vein and internal jugular vein were also imaged. Images stored on PACS. LIMITATIONS: None. FINDINGS: INTERNAL JUGULAR VEIN: Normal phasicity, compression, augmentation. No visualized echogeni c material on pittman scale. No defects on color images. Comparison opposite side normal. SUBCLAVIAN VEIN: Normal compression, augmentation. No visualized echogenic material on pittman scale. No defects on color images. AXILLARY VEIN: Normal compression, augmentation. No visualized echogenic material on pittman scale. No d efects on color images. BRACHIAL VEIN: Normal compression, augmentation. No visualized echogenic material on pittman scale. No d efects on color images. BASILIC VEIN: Normal compression, augmentation. No visualized echogenic material on pittman scale. No de fects on color images. CEPHALIC VEIN: Normal compression, augmentation. No visualized echogenic material on pittman scale. No d efects on color images. OTHER: No other significant finding. CONTRALATERAL SUBCLAVIAN VEIN AND INTERNAL JUGULAR VEIN: Normal phasicity, compression and augmentation. No visualized echogenic material on pittman scale. No de fects on color images. IMPRESSION: No evidence of DVT or SVT within the right arm. TECHNICAL DOCUMENTATION: JOB ID: [id number] 2010 [employer]- All Rights Reserved Reading location - IP/workstation name: [email or web address]
== END ==
LOC: SP 12:40
PROVIDERS: ATTEND Internal Medicine
DX: M79.89 Other specified soft tissue disorders (principal)
CPT/HCPCS: 93971

== ENCOUNTER → 2020-02-17 | Outpatient (CLI) | payer MEDICAID ==
--- NOTE | 2020-02-17 16:26 | RADIOLOGY REPORT (SQ) ---
EXAM DESCRIPTION: NM WHOLE BODY BONE SCAN IMAGES COMPLETED DATE/TIME: 02/17/2020 12:56 pm REASON FOR STUDY: BREAST CA C50.312 MALIG NEOPLASM OF LOWER-INNER QUADRANT OF LEFT FEMAL COMPARISON: AP internally rotated, AP externally rotated, and scapular Y-views of the right shoulder were obtained. RADIONUCLIDE AND DOSE: 21.1 millicuries Tc99m HDP. The route of agent administration: Intravenous. ADDITIONAL DRUGS AND DOSES: None. TECHNIQUE: Routine delayed images at 3 hour post radionuclide injection acquired of the bony skeleto n including anterior and posterior whole-body projections and additional focused images as needed. LIMITATIONS: None. FINDINGS: BONES: Increased focal uptake in the proximal right humerus ; the distribution of the upta ke corresponds to the ill-defined permeative abnormality described on the correlative radiograph. Th ere are no other foci of abnormal uptake. KIDNEYS: Symmetric uptake without evidence of obstruction. OTHER: No other finding. IMPRESSION: Abnormal uptake within the proximal right humerus ; the distribution of the uptake corre sponds to the ill-defined permeative abnormality described on the correlative radiograph. COMMENT: Quality measure 147: Current bone scan is compared with any available plain radiographs, p rior bone scans, and CT/MRI. TECHNICAL DOCUMENTATION: JOB ID: [id number] 2010 [employer]- All Rights Reserved Reading location - IP/workstation name: [email or web address]
== END ==
LOC: RAD 08:37
PROVIDERS: ATTEND Internal Medicine
DX: C50.312 Malignant neoplasm of lower-inner quadrant of left female breast (principal)
CPT/HCPCS: 78306; A9561; Q9969

== ENCOUNTER → 2020-02-25 | Outpatient (CLI) | payer MEDICAID ==
--- NOTE | 2020-02-25 09:05 | RADIOLOGY REPORT (SQ) ---
EXAM DESCRIPTION: CT CHEST WITH IMAGES COMPLETED DATE/TIME: 02/25/2020 8:38 am REASON FOR STUDY: MALIG NEOPLASM OF LOWER-INNER QUADRANT OF LEFT FEMALE BREAST C50.312 MALIG NEOPLA SM OF LOWER-INNER QUADRANT OF LEFT FEMAL COMPARISON: Bone scan from 02/17/[address] of the chest with contrast from 06/12/2018. TECHNIQUE: CT scan of the chest performed using helical scanning technique with dynamic intravenous contrast injection. Images reviewed with lung, soft tissue and bone windows. Reconstructed coronal and sagittal MPR and MIP images reviewed. All images stored on PACS. All CT scanners at this facility use dose modulation, iterative reconstruction, and/or weight based d osing when appropriate to reduce radiation dose to as low as reasonably achievable (ALARA). [facility]: Dose Right [facility]: CareDose [facility]: Dose Right [facility]: Teradose 4D [facility]: ClickScanShare CONTRAST TYPE AND DOSE: 100 mL Omnipaque 350- low osmolar. RENAL FUNCTION: Creatinine 0.5 milligrams/deciliter. RADIATION DOSE: CT Rad equipment meets quality standard of care and radiation dose reduction techniq ues were employed. CTDIvol: 13.0 - 19.9 mGy. DLP: 2697 mGy-cm. LIMITATIONS: None. FINDINGS: LUNGS AND PLEURA: The trachea and main bronchi are patent. The subpleural blebs in the ap ices are unchanged. Since 2018 the patient has developed subpleural reticular opacities in the left upper lobe that could represent the sequela of prior radiation. There are multiple new solid pulmona ry nodules scattered throughout the right upper, right middle, right lower and left lower lobes that measure up to 5 mm in diameter ; for reference refer to images 77, 78, 80, 86, 97, 102, 105, 106, 110 and 111 of series 6. The curvilinear opacities that extend to the pleural surface in the lower lobes are consistent with parenchymal bands. There is no acute consolidation, pleural effusion or pneumot horax. HILAR AND MEDIASTINAL STRUCTURES: No adenopathy or mass. HEART AND VASCULAR STRUCTURES: No aneurysm or dissection of the thoracic aorta. No cardiomegaly or p ericardial effusion. HARDWARE: None in the chest. UPPER ABDOMEN: Refer to the separate report of the CT of the abdomen. 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 There is no adenopathy or mass. BONES: Permeative lesion in the proximal right humerus that corresponds to the area of abnormal uptak e on the correlative PET. There is a probable hemangioma within the T10 vertebral body. OTHER: No other finding. IMPRESSION: 1. Multiple new solid pulmonary nodules scattered throughout the right upper, right midd le, right lower and left lower lobes concerning for metastases. 2. Permeative lesion in the proximal right humeral that corresponds to the area of abnormal uptake o n the correlative PET. 3. New subpleural reticular opacities in the left upper lobe that could represent the sequela of yue or radiation. TECHNICAL DOCUMENTATION: JOB ID: [id number] Quality ID # 436: Final reports with documentation of one or more dose reduction techniques (e.g., Au tomated exposure control, adjustment of the mA and/or kV according to patient size, use of iterative reconstruction technique) 2010 [email or web address]- All Rights Reserved Reading location - IP/workstation name: [email or web address]
--- NOTE | 2020-02-25 10:37 | RADIOLOGY REPORT (SQ) ---
EXAM DESCRIPTION: CT ABD/PELVIS WITH IV ONLY IMAGES COMPLETED DATE/TIME: 02/25/2020 8:38 am REASON FOR STUDY: MALIG NEOPLASM OF LOWER-INNER QUADRANT OF LEFT FEMALE BREAST C50.312 MALIG NEOPLA SM OF LOWER-INNER QUADRANT OF LEFT FEMAL COMPARISON: CT of the abdomen and pelvis with contrast from 06/12/2018. TECHNIQUE: CT scan of the abdomen and pelvis performed using helical scanning technique with dynamic intravenous contrast injection. No oral contrast. Images reviewed with lung, soft tissue, and bone windows. Reconstructed coronal and sagittal MPR images reviewed. Delayed images for evaluation of the urinary system also acquired. All images stored on PACS. All CT scanners at this facility use dose modulation, iterative reconstruction, and/or weight based d osing when appropriate to reduce radiation dose to as low as reasonably achievable (ALARA). [facility]: Dose Right [facility]: CareDose [facility]: Dose Right [facility]: Teradose 4D [facility]: HemoSonics CONTRAST TYPE AND DOSE: Contrast/concentration: Isovue 350.00 mg/ml; Total Contrast Delivered: 100.0 ml; Total Saline Delivered: 72.0 ml RENAL FUNCTION: Creatinine 0.5 milligrams/deciliter. LIMITATIONS: None. FINDINGS: LOWER CHEST: Refer to separate report of the CT of the chest. LIVER: The nodular contour of the liver is suggestive of underlying cirrhosis. There is an ill-defin ed hypodense lesion in the hepatic dome (image 18 of series 3) that measures 1.5 x 1.8 cm. The erica l veins are patent. SPLEEN: The spleen is normal in size. PANCREAS: There is no abnormality of the pancreas. GALLBLADDER: No abnormality that is apparent on CT. ADRENAL GLANDS: No mass or asymmetry. RIGHT KIDNEY AND URETER: No solid masses. No calcifications. No hydronephrosis or hydroureter. LEFT KIDNEY AND URETER: No solid masses. No calcifications. No hydronephrosis or hydroureter. AORTA AND VESSELS: No aneurysm or dissection of the abdominal aorta. RETROPERITONEUM: No retroperitoneal adenopathy, hemorrhage or mass. BOWEL AND PERITONEAL CAVITY: Colonic diverticulosis without diverticulitis. There is no bowel obstru ction, bowel wall thickening or pericolonic/ perienteric inflammation. There is also no mesenteric a denopathy, free intraperitoneal fluid or mesenteric/ omental inflammation. APPENDIX: Unable to identify the appendix. There is no pericecal inflammation. PELVIS: The uterus is surgically absent. The urinary bladder is partially distended. There is no pe lvic mass. ABDOMINAL WALL: Diastasis of the rectus sheath. BONES: No fracture or osseous lesion. OTHER: No other finding. IMPRESSION: 1. Ill-defined hypodense lesion in the hepatic dome (image 18 of series 3) that measures 1.5 x 1.8 cm. In the setting of new pulmonary nodules and a permeative lesion in the proximal right humerus the primary differential to consider is a metastasis. 2. Cirrhosis without stigmata of portal hypertension. 3. Colonic diverticulosis without diverticulitis. TECHNICAL DOCUMENTATION: JOB ID: [id number] Quality ID # 436: Final reports with documentation of one or more dose reduction techniques (e.g., Au tomated exposure control, adjustment of the mA and/or kV according to patient size, use of iterative reconstruction technique) 2010 [employer]- All Rights Reserved Reading location - IP/workstation name: [email or web address]
== END ==
LOC: RAD 08:06
PROVIDERS: ATTEND Internal Medicine
DX: C50.312 Malignant neoplasm of lower-inner quadrant of left female breast (principal); K57.30 Diverticulosis of large intestine without perforation or abscess without bleeding; K74.60 Unspecified cirrhosis of liver; R91.8 Other nonspecific abnormal finding of lung field
CPT/HCPCS: 71260; 74177; 82565

== ENCOUNTER → 2020-03-10 | Outpatient (CLI) | payer MEDICAID ==
--- NOTE | 2020-03-11 12:12 | RADIOLOGY REPORT (SQ) ---
EXAM DESCRIPTION: PET CT SKULL/THIGH IMAGES COMPLETED DATE/TIME: 03/10/2020 12:54 pm REASON FOR STUDY: (C50.312)MALIG NEOPLASM OF LOWER-INNER QUADRANT OF LEFT FEMALE BREAST C50.312 MAL IG NEOPLASM OF LOWER-INNER QUADRANT OF LEFT FEMAL COMPARISON: CT chest abdomen and pelvis dated 02/25/2020, bone scan dated 02/17/2020 RADIONUCLIDE AND DOSE: 10.49 mCi F18 FDG The route of agent administration: Intravenous FASTING BLOOD SUGAR: 110 mg/dl CONTRAST TYPE AND DOSE: No CT contrast given. TECHNIQUE: Blood glucose level was verified. Above dose of FDG was injected intravenously. 2-D seg mented attenuation correction images were obtained from the base of the skull to the midthighs. Nonc ontrast CT images were obtained for attenuation correction and fusion with emission images. CT image s were performed without oral or intravenous contrast and are not sensitive for parenchymal lesions. A series of overlapping emission PET images were obtained. Images reviewed and manipulated at [facility] work station by the radiologist. Images stored on PACS. LIMITATIONS: None. FINDINGS: HEAD AND NECK: No areas of abnormal metabolic activity in the soft tissues of the head and neck. CHEST: No areas of abnormal metabolic activity in the chest. ABDOMEN AND PELVIS: No areas of abnormal metabolic activity in the abdomen or pelvis. Expected physi ologic activity is present in the genitourinary system and bowel. PROXIMAL LOWER EXTREMITIES: No areas of abnormal metabolic activity in the soft tissues of the lower extremities. BONES: Abnormal uptake in the right shoulder. SUVs greater than 7. Additional numerous bony lesions including the cervical spine, right clavicular head, right greater trochanter, left ilium and lumbar spine. ADDITIONAL CT FINDINGS: No additional significant findings on the noncontrast CT images. OTHER: No other significant findings. IMPRESSION: Bony metastatic disease as described. No soft tissue abnormality. TECHNICAL DOCUMENTATION: JOB ID: [id number] 2010 [employer]- All Rights Reserved Reading location - IP/workstation name: [email or web address]
== END ==
LOC: RAD 09:49
PROVIDERS: ATTEND Internal Medicine
DX: C50.312 Malignant neoplasm of lower-inner quadrant of left female breast (principal)
CPT/HCPCS: 78815; A9552

== ENCOUNTER 2020-03-23 08:57 | Day surgery (SDC) | payer MEDICAID ==
[2020-03-23 09:58] LABS: HEMATOCRIT 39.4 % (36.0-47.0); MEAN CORPUSCULAR HEMOGLOBIN 33.8 pg (27.0-33.4); MEAN CORPUSCULAR HGB CONC 35.6 g/dL (32.0-36.0); MEAN CORPUSCULAR VOLUME 95 fl (80-97); PLATELET COUNT 162 10^3/uL (150-450); RED BLOOD COUNT 4.15 10^6/uL (3.72-5.28); RED CELL DISTRIBUTION WIDTH 12.2 % (11.5-14.0); WHITE BLOOD COUNT 5.7 10^3/uL (4.0-10.5)
[2020-03-23 10:04] LABS: INTERNATIONAL RATION (INR) 0.97; PARTIAL THROMBOPLASTIN TIME 28.3 SEC (23.5-35.8); PROTHROMBIN TIME 12.9 SEC (11.4-15.4)
[2020-03-23 10:21] LABS: BLOOD UREA NITROGEN 11 mg/dL (7-20)
[2020-03-23] MEDS ORDERED: MIDAZOLAM 2 MG/2 ML INJ ONE (11:09)
[2020-03-23] MEDS ORDERED: FENTANYL CITRATE INJ/PF 100 MCG/2 ML AMPUL ONE (11:09)
--- NOTE | 2020-03-23 14:42 | RADIOLOGY REPORT (SQ) ---
EXAM DESCRIPTION: CT NEEDLE PLACEMENT; CT BIOPSY BONE DEEP IMAGES COMPLETED DATE/TIME: 03/23/2020 12:30 pm REASON FOR STUDY: MALIGNANT NEOPLASM OF LOWER INNER QUADRANT OF FEMALE BREAST, BONE BIOPSY; MALIGNAN T NEOPLASM OF LOWER INNER QUADRANT OF FEMALE BREAST C50.312 MALIG NEOPLASM OF LOWER-INNER QUADRANT O F LEFT FEMAL COMPARISON: PET from 03/10/2020. FLUORO TIME: 16.7 seconds. 142 images submitted to PACS. LIMITATIONS: None. PROCEDURE: The procedure, risks, benefits, and alternatives were discussed with the patient in the p reprocedural area, and all questions were answered. Informed consent was obtained verbally and in wri ting. The patient was then brought to the CT suite, positioned supine on the CT gurney, and a time-out was performed. After that, axial images of the abdomen were obtained for targeting of the lytic lesion i n the left iliac tubercle. Based on review of the axial images an appropriate access site was select ed on the skin. The area around selected access site was then prepped and draped with 2% chlorhexidine utilizing kiara dard sterile technique. After that, the access site was infiltrated 1% lidocaine and an incision was made in the skin with a #11 blade. An 11 gauge Osteo-Site Cox coaxial needle was then advanced in to the lytic lesion. After that, the inner stylet of the coaxial needle was replaced for a 13 gauge b iopsy needle. 1 core sample and 5 mL of marrow aspirate were then obtained from the lesion and submit verenice to Pathology in formalin. The cannula of the Osteo-Site Cox coaxial needle was then removed an d axial images of the biopsied area were obtained to exclude an acute complication. The patient tolerated the procedure well without immediate complication. At the end of the procedure the patient's condition was unchanged from the preprocedural baseline. IV conscious sedation was administered at the direction of the performing physician by a angelita munguia. 1 milligrams of Versed and 150 micrograms of fentanyl. Physiologic monitoring was provided befo re, during, and after sedation. The total sedation time was 30 minutes. Documentation of [id number]-[id number] time the proceduralist spent monitoring the patient: 15 minutes. IMPRESSION: Successful CT-guided biopsy of the lytic lesion in the left iliac tubercle as detailed bill dela cruz. COMMENT: Patient medication list reviewed: Yes- Quality ID# 130:Eligible professional attests to doc umenting in the medical record they obtained, updated, or reviewed the patient's current medications. Quality ID #76: The patient was prepped and draped using maximum sterile barrier technique including cap, mask, sterile gown, sterile gloves, a large sterile sheet, hand hygiene, and 2% Chlorhexidine fo r cutaneous antisepsis. When ultrasound is used, sterile ultrasound techniques are followed requiring sterile gel and sterile probes. Quality ID 145: Final reports for procedures using fluoroscopy that document radiation exposure ally maddie, or exposure time and number of fluorographic images (if radiation exposure indices are not avail able) Quality ID# 436: Final reports with documentation of one or more dose reduction techniques (e.g., Aut omated exposure control, adjustment of the mA and/or kV according to patient size, use of iterative r econstruction technique) TECHNICAL DOCUMENTATION: JOB ID: [id number] 2010 [employer]- All Rights Reserved rev Reading location - IP/workstation name: [email or web address]
[2020-03-23 16:01] VITALS: BP 112/59
== END 2020-03-23 14:23 | disposition home or self-care (01) ==
LOC: RAD 08:57
PROVIDERS: ATTEND Internal Medicine
DX: C50.312 Malignant neoplasm of lower-inner quadrant of left female breast (principal); C79.51 Secondary malignant neoplasm of bone; I10 Essential (primary) hypertension; Z79.899 Other long term (current) drug therapy
CPT/HCPCS: 36415; 84520; 82565; 85027; 85610; 85730; 88342 ×2; 88311; 77012; 20225; J2250; J3010; J1642; 88341

== ENCOUNTER → 2020-04-10 | Outpatient (CLI) | payer MEDICAID ==
--- NOTE | 2020-04-10 17:57 | RADIOLOGY REPORT (SQ) ---
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 NUMBER OF VIEWS: Three views. TECHNIQUE: Internal rotation, external rotation, and Y view images acquired of the right shoulder. LIMITATIONS: None. FINDINGS: MINERALIZATION: Normal. BONES: Markedly heterogeneous decreased density of the right humeral head and neck. On the lateral v iew cannot exclude a fracture of the humeral neck. JOINTS: No dislocation. VISUALIZED LUNGS AND RIBS: No pneumothorax. No rib fracture. SOFT TISSUES: No radiopaque foreign body. OTHER: No other significant finding. IMPRESSION: Likely metastatic changes in the right proximal humerus. Cannot exclude pathological fr acture of the humeral neck. TECHNICAL DOCUMENTATION: JOB ID: [id number] 2010 [employer]- All Rights Reserved Reading location - IP/workstation name: [email or web address]
== END ==
LOC: RAD 17:14
PROVIDERS: ATTEND Physician Assistant Medical
DX: M25.511 Pain in right shoulder (principal); C50.312 Malignant neoplasm of lower-inner quadrant of left female breast

== ENCOUNTER → 2020-07-03 | Outpatient (CLI) | payer MEDICAID ==
--- NOTE | 2020-07-03 16:30 | RADIOLOGY REPORT (SQ) ---
EXAM DESCRIPTION: HIP BILATERAL IMAGES COMPLETED DATE/TIME: 07/03/2020 3:51 pm REASON FOR STUDY: C50.312 MALIG NEOPLASM OF LOWER-INNER QUADRANT OF LEFT FEMALE BREAST C50.312 SERVANDO G NEOPLASM OF LOWER-INNER QUADRANT OF LEFT FEMAL COMPARISON: None. NUMBER OF VIEWS: Two views. TECHNIQUE: AP pelvis and additional frog legview of the right and left hip. LIMITATIONS: None. FINDINGS: MINERALIZATION: Normal. PRIMARY HIP: No fracture or dislocation. No worrisome bone lesions. OPPOSITE HIP: No fracture or dislocation. No worrisome bone lesions. Limited views. PUBIS AND ISCHIUM: No fracture. PELVIS: No fracture. SACRUM: No fracture or dislocation. No worrisome bone lesions. LOWER LUMBAR SPINE: No fracture or dislocation. No worrisome bone lesions. No significant disc disea se. SOFT TISSUES: No findings. OTHER: No other significant finding. IMPRESSION: NEGATIVE STUDY OF THE RIGHT AND LEFT HIPS AND PELVIS. NO RADIOGRAPHIC EVIDENCE OF ACUTE INJURY. TECHNICAL DOCUMENTATION: JOB ID: [id number] 2010 [employer]- All Rights Reserved Reading location - IP/workstation name: [email or web address]
--- NOTE | 2020-07-03 16:33 | RADIOLOGY REPORT (SQ) ---
EXAM DESCRIPTION: FEMUR BILATERAL 2 VIEWS IMAGES COMPLETED DATE/TIME: 07/03/2020 3:51 pm REASON FOR STUDY: C50.312 MALIG NEOPLASM OF LOWER-INNER QUADRANT OF LEFT FEMALE BREAST C50.312 SERVANDO G NEOPLASM OF LOWER-INNER QUADRANT OF LEFT FEMAL COMPARISON: None. NUMBER OF VIEWS: Two views. TECHNIQUE: Two radiographic images acquired of the right and left femur to include hip and knee in a t least one projection. LIMITATIONS: None. FINDINGS: MINERALIZATION: Normal. BONES: No fracture. No troublesome bone lesions. SOFT TISSUES: No obvious swelling or foreign body. OTHER: No other significant finding. IMPRESSION: Negative study of the right and left femurs. No evidence of metastatic disease. No acu te finding. TECHNICAL DOCUMENTATION: JOB ID: [id number] 2010 [employer] All Rights Reserved Reading location - IP/workstation name: [email or web address]
== END ==
LOC: RAD 15:21
PROVIDERS: ATTEND Physician Assistant Medical
DX: C50.312 Malignant neoplasm of lower-inner quadrant of left female breast (principal)
CPT/HCPCS: 73522; 73552

== ENCOUNTER → 2020-07-24 | Outpatient (CLI) | payer MEDICAID ==
--- NOTE | 2020-07-24 12:08 | RADIOLOGY REPORT (SQ) ---
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 Patient was given oral contrast. Images reviewed with lung, soft ti ssue, and bone windows. Reconstructed coronal and sagittal MPR images reviewed. Delayed images for ev aluation of the urinary system also acquired. All images stored on PACS. All CT scanners at this facility use dose modulation, iterative reconstruction, and/or weight based d osing when appropriate to reduce radiation dose to as low as reasonably achievable (ALARA). [facility]: Dose Right [facility]: CareDose [facility]: Dose Right [facility]: Teradose 4D [facility]: [employer] CONTRAST TYPE AND DOSE: See chest RENAL FUNCTION: Creatinine 0.5 RADIATION DOSE: CT Rad equipment meets quality standard of care and radiation dose reduction techniq ues were employed. CTDIvol: 10.4 - 14.3 mGy. DLP: 1859 mGy-cm.. LIMITATIONS: None. FINDINGS: LOWER CHEST: See separate report of the CT of the chest. LIVER: Nodular hepatic contour. Again seen is a indeterminate hypodense ill-defined lesion within th e right hepatic dome measuring 16 x 15 mm (series 3, image 10). No other discrete hepatic lesions. No intrahepatic ductal dilation. SPLEEN: Normal size. No focal lesions. PANCREAS: No masses. No significant calcifications. No adjacent inflammation or peripancreatic fluid collections. Pancreatic duct not dilated. GALLBLADDER: No identified stones by CT criteria. No inflammatory changes to suggest cholecystitis. ADRENAL GLANDS: No significant masses or asymmetry. RIGHT KIDNEY AND URETER: No solid masses. No significant calcifications. No hydronephrosis or hyd roureter. LEFT KIDNEY AND URETER: No solid masses. No significant calcifications. No hydronephrosis or hydr oureter. AORTA AND VESSELS: No aneurysm. No dissection. Renal arteries, SMA, celiac without stenosis. RETROPERITONEUM: No retroperitoneal adenopathy, hemorrhage or masses. BOWEL AND PERITONEAL CAVITY: No evidence intestinal obstruction. Scattered colonic diverticula. No focal bowel wall thickening. Ovoid density within the gastric lumen with fat fluid level, likely ing ested pill. APPENDIX: Not well visualized. PELVIS: No mass. No free fluid. Normal bladder. ABDOMINAL WALL: No masses. No hernias. BONES: No acute bony abnormality. There is a new lytic lesion with destruction of the anterior arturo x of L5 measuring approximately 3.1 x 2.0 cm (series 3, image 47). Additional multiple lucent osseou s lesions in the visualized axial skeleton including anterior aspect of L2 (series 3, image 29), bila teral ilium (series 3, image 50 and image 54), right proximal femur (series 3, image 73). OTHER: No other significant finding. IMPRESSION: 1. Multifocal lytic osseous lesions most compatible with osseous metastatic disease as detailed above. Progressed compared to CT dated 02/25/2020. 2. Stable indeterminate hypodense right hepatic dome lesion measuring 16 x 15 mm. 3. Additional incidental findings as above. TECHNICAL DOCUMENTATION: JOB ID: [id number] Quality ID # 436: Final reports with documentation of one or more dose reduction techniques (e.g., Au tomated exposure control, adjustment of the mA and/or kV according to patient size, use of iterative reconstruction technique) 2010 [employer]- All Rights Reserved Reading location - IP/workstation name: [email or web address]
--- NOTE | 2020-07-24 12:39 | RADIOLOGY REPORT (SQ) ---
EXAM DESCRIPTION: NM WHOLE BODY BONE SCAN IMAGES COMPLETED DATE/TIME: 07/24/2020 12:08 pm REASON FOR STUDY: C79.51 SECONDARY MALIGNANT NEOPLASM OF BONE C50.312 MALIG NEOPLASM OF LOWER-INNER QUADRANT OF LEFT FEMAL C79.51 SECONDARY MALIGNANT NEOPLASM OF BONE COMPARISON: 02/17/2020 RADIONUCLIDE AND DOSE: 21.6 millicuries Tc99m MDP. The route of agent administration: Intravenous. ADDITIONAL DRUGS AND DOSES: None. TECHNIQUE: Routine delayed images at 3 hour post radionuclide injection acquired of the bony skeleto n including anterior and posterior whole-body projections and additional focused images as needed. LIMITATIONS: None. FINDINGS: BONES: Multifocal areas of pathologic radiotracer uptake including the right proximal jaja bebeto, right sternoclavicular joint, right anterior and left posterior lower ribs, L2 and L5 vertebral body and left anterior ilium. Findings correspond to lucent lesions on same day CT and most compatib le with osseous metastatic disease. Right humeral uptake is decreased compared to prior exam. Multi focal additional areas are new since prior exam dated 02/17/2020. Additional areas of uptake at the s houlders knees elbows and feet in a degenerative type pattern. KIDNEYS: Symmetric excretion without obstruction. OTHER: No other significant finding. IMPRESSION: Multifocal areas of abnormal uptake as detailed above and compatible with osseous metast atic disease, increased from prior exam. Some of these areas correspond to lucent lesions on same da y CT. COMMENT: Quality measure 147: Current bone scan is compared with any available plain radiographs, p rior bone scans, and CT/MRI. TECHNICAL DOCUMENTATION: JOB ID: [id number] 2010 [employer]- All Rights Reserved Reading location - IP/workstation name: [email or web address]
--- NOTE | 2020-07-24 16:17 | RADIOLOGY REPORT (SQ) ---
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 Images reviewed with lung, soft tissue and bone windows. Reconstructed coronal and sagittal MPR and MIP images reviewed. All images stored on PACS. All CT scanners at this facility use dose modulation, iterative reconstruction, and/or weight based d osing when appropriate to reduce radiation dose to as low as reasonably achievable (ALARA). [facility]: Dose Right [facility]: CareDose [facility]: Dose Right [facility]: Teradose 4D [facility]: [employer] CONTRAST TYPE AND DOSE: contrast/concentration: Isovue 350.00 mmol/ml; Total Contrast Delivered: 85. 0 ml; Total Saline Delivered: 40.0 ml RENAL FUNCTION: Creatinine 0.5 RADIATION DOSE: . LIMITATIONS: None. FINDINGS: LUNGS AND PLEURA: Stable subpleural reticular opacities in the left upper lobe possibly se quelae from prior radiation. Previously seen pulmonary nodules scattered throughout the right upper, right middle, right lower and left lower lobes are again visualized. Multiple least pulmonary nodul es remain sub 5 mm. There has been interval growth in some nodules. For reference there is a lingul ar nodule measuring 8 mm (series 6, image 100), previously 6 mm. Additional interval growth in the l eft lower lobe nodule measuring 6.5 mm (series 6, image 91), previously 3.2 mm. Referenced right bas ilar subpleural nodule measures 6.5 mm (series 6, image 99), previously 4.3 mm. No new definitive no dules are identified. Stable to mild interval increase in size additional non referenced nodules. N o pleural effusion or pneumothorax. HILAR AND MEDIASTINAL STRUCTURES: Shotty mediastinal nodes without discrete adenopathy. HEART AND VASCULAR STRUCTURES: No aneurysm or dissection. No central pulmonary emboli. No pericardi al effusion. HARDWARE: None in the chest. UPPER ABDOMEN: No significant findings. Limited exam. THYROID AND OTHER SOFT TISSUES: No masses. No adenopathy. BONES: Stable expansile sclerotic lesion at the anterolateral right 7th rib possibly related to remot e trauma. New superior endplate lucent lesion at the T12 vertebral body. Additional new lucent lesi on within the T10 vertebral body measuring 12 mm (series 601, image 75). No additional discrete lyti c or blastic osseous lesions. OTHER: No other significant finding. IMPRESSION: 1. Multiple bilateral pulmonary nodules which demonstrate minimal interval increase in size as detailed above. No new discrete nodules. 2. New T10 vertebral body and T12 superior endplate lucent lesions compared to prior exam. 3. No other evidence of acute intrathoracic process. TECHNICAL DOCUMENTATION: JOB ID: [id number] Quality ID # 436: Final reports with documentation of one or more dose reduction techniques (e.g., Au tomated exposure control, adjustment of the mA and/or kV according to patient size, use of iterative reconstruction technique) 2010 [employer]- All Rights Reserved Reading location - IP/workstation name: [email or web address]
== END ==
LOC: RAD 08:03
PROVIDERS: ATTEND Physician Assistant Medical
DX: C50.312 Malignant neoplasm of lower-inner quadrant of left female breast (principal); C79.51 Secondary malignant neoplasm of bone; R91.8 Other nonspecific abnormal finding of lung field
CPT/HCPCS: 82565; 78306; 71260; 74177; A9503; Q9969